=== PATIENT | female | born 1960 | race Caucasian/White ===

== ENCOUNTER 2020-10-13 09:45 | Outpatient (REF) | payer OTHER, SELFPAY ==
--- NOTE | ~2020-10-13 | MM_ITS ---
EXAMINATION: MM SCREENING DIGITAL BREAST TOMOSYNTHESIS, BILATERAL CLINICAL INFORMATION: Screening. Asymptomatic. The lifetime risk of breast cancer based on the Tyrer-Cuzick Model is 4%. COMPARISON: Mammography: 08/17/2019, 08/11/2018, 10/07/2015, 06/23/2015 TECHNIQUE: Digital breast tomosynthesis is performed in both the craniocaudal and mediolateral oblique views along with computer-aided detection (CAD). Synthesized 2D images are generated from the tomosynthesis. FINDINGS: There are scattered areas of fibroglandular density (ACR BI-RADS breast composition Category b). There are no significant masses, abnormal calcifications, or other abnormalities. Parenchymal pattern is similar to prior studies. There is no developing density. Nodularity anterior central and mid medial left breast is stable from prior studies. The axilla are stable. The skin contours are unremarkable. MM/MM tomosynthesis screening BI IMPRESSION: No mammographic evidence of malignancy. ASSESSMENT: BI-RADS 2: Benign RECOMMENDATION: Routine annual mammography screening. This patient's information was entered into a reminder system with a target due date for their next mammogram.
== END 2020-10-13 09:46 | disposition home or self-care (01) ==
LOC: HO.MAMMO 09:45
PROVIDERS: Visit Provider Internal Medicine
DX: Z12.31 Encounter for screening mammogram for malignant neoplasm of breast (principal)
CPT/HCPCS: 77063; 77067

== ENCOUNTER 2021-05-04 12:33 | Outpatient (REF) | payer OTHER, SELFPAY ==
--- NOTE | ~2021-05-04 | XR_ITS ---
EXAMINATION: XR KNEE, LEFT CLINICAL INFORMATION: Pain COMPARISON: Previous x-ray 2010 TECHNIQUE: Four views of the left knee. FINDINGS: Bone alignment is normal. No fracture or dislocation is seen. There is degenerative meniscal calcification. There is joint space narrowing and small osteophytes at the patellofemoral and femoral tibial joints. There is no significant joint effusion. XR/XR knee LT 2V IMPRESSION: Arthritis similar to 2010 exam.
[2021-05-04 12:47] LABS: MANUAL DIFF FLAG NO
[2021-05-04 13:25] LABS: Basophils Absolute Auto 0.1 X10*3/uL (0.0-0.2); Basophils Percent Auto 0.6 % (0-2); Eosinophils Absolute Auto 0.2 X10*3/uL (0.0-0.4); Eosinophils Percent Auto 1.3 % (0-4); Hematocrit 42.8 % (37.0-47.0); Hemoglobin 13.3 g/dl (12.0-16.0); Imm Gran Abs Auto 0.05 X10*3/uL (0.00-0.03); Imm Gran Pct Auto 0.4 % (0.0-0.4); Lymphocytes Absolute Auto 3.7 X10*3/uL (1.2-4.9); Lymphocytes Percent Auto 31.7 % (20-40); Mean Corpuscular HGB Conc 31.1 g/dl (31.0-35.0); Mean Corpuscular Hemoglobin 27.5 pg (27.0-33.0); Mean Corpuscular Volume 88.6 fL (80.0-98.0); Mean Platelet Volume 11.1 fL (9.4-12.3); Monocytes Absolute Auto 0.6 X10*3/uL (0.1-1.2); Platelet Count 323 X10*3/uL (160-400); Red Blood Count 4.83 X10*6/uL (4.20-5.50); Red Cell Distribution Width 13.2 % (11.0-16.0); White Blood Count 11.6 X10*3/uL (4.8-10.8)
[2021-05-04 14:08] LABS: Alanine Aminotransferase 24 U/L (0-31); Albumin Level 4.3 g/dL (3.5-5.0); Alkaline Phosphatase 110 U/L (39-117); Anion Gap 12 (12-20); Aspartate Amino Transferase 17 U/L (5-31); Bilirubin Total 0.2 mg/dL (0.0-1.0); Blood Urea Nitrogen 9 mg/dL (9-16); Calcium 9.8 mg/dL (8.4-10.2); Carbon Dioxide 28 mmol/L (22-29); Chloride 101 mmol/L (96-108); Cholesterol 210 mg/dL; Estimated Glomerular Filt Rate > 60; Glucose Fasting 163 mg/dL (60-99); HDL Cholesterol 37 mg/dL; LDL Cholesterol Calculated 127 mg/dl; Potassium 4.2 mmol/L (3.3-5.1); Sodium 137 mmol/L (135-145); Triglycerides 230 mg/dL
[2021-05-04 14:19] LABS: Thyroid Stimulating Hormone 1.27 uIU/mL (0.32-4.0)
== END 2021-05-04 12:34 | disposition home or self-care (01) ==
LOC: HO.LAB 12:33
PROVIDERS: PCP Internal Medicine; Visit Provider Internal Medicine
DX: Z00.00 Encounter for general adult medical examination without abnormal findings (principal); Z13.0 Encounter for screening for diseases of the blood and blood-forming organs and certain disorders involving the immune mechanism; M25.562 Pain in left knee
CPT/HCPCS: 36415; 73560; 80053; 80061; 84443; 85025

== ENCOUNTER 2021-05-11 09:56 | Outpatient (REF) | payer OTHER, SELFPAY ==
[2021-05-11 11:07] LABS: Estimated Average Glucose 160 mg/dL; Hemoglobin A1c % 7.2 %
[2021-05-11 11:43] LABS: Glucose Fasting 154 mg/dL (60-99)
== END 2021-05-11 09:57 | disposition home or self-care (01) ==
LOC: HO.LAB 09:56
PROVIDERS: PCP Internal Medicine; Visit Provider Internal Medicine
DX: E11.65 Type 2 diabetes mellitus with hyperglycemia (principal)
CPT/HCPCS: 36415; 82947; 83036

== ENCOUNTER 2021-10-14 10:56 | Outpatient (REF) | payer OTHER, SELFPAY ==
--- NOTE | ~2021-10-14 | MM_ITS ---
EXAMINATION: MM SCREENING DIGITAL BREAST TOMOSYNTHESIS, BILATERAL CLINICAL INFORMATION: Screening. Asymptomatic. The lifetime risk of breast cancer based on the Tyrer-Cuzick Model is 6.0%. COMPARISON: Mammography: October 13, 2020 and studies dating back to June 08, 2013 TECHNIQUE: Digital breast tomosynthesis is performed in both the craniocaudal and mediolateral oblique views along with computer-aided detection (CAD). Synthesized 2D images are generated from the tomosynthesis. FINDINGS: There are scattered areas of fibroglandular density (ACR BI-RADS breast composition Category b). There are no new significant masses, abnormal calcifications, or other abnormalities. Bilateral circumscribed densities are again noted. MM/MM tomosynthesis screening BI IMPRESSION: No significant changes ASSESSMENT: BI-RADS 2: Benign RECOMMENDATION: Routine annual mammography screening. This patient's information was entered into a reminder system with a target due date for their next mammogram.
== END 2021-10-14 10:57 | disposition home or self-care (01) ==
LOC: HO.MAMMO 10:56
PROVIDERS: Visit Provider Internal Medicine
DX: Z12.31 Encounter for screening mammogram for malignant neoplasm of breast (principal)
CPT/HCPCS: 77063; 77067

== ENCOUNTER 2021-10-28 10:49 | Outpatient (REF) | payer OTHER, SELFPAY ==
[2021-10-28 12:09] LABS: Estimated Average Glucose 252 mg/dL; Hemoglobin A1c % 10.4 %
[2021-10-28 12:38] LABS: Cholesterol 217 mg/dL; Glucose Fasting 440 mg/dL (60-99); HDL Cholesterol 33 mg/dL; LDL Cholesterol Calculated 115 mg/dl; Triglycerides 348 mg/dL
[2021-10-28 12:55] LABS: Thyroid Stimulating Hormone 1.57 uIU/mL (0.32-4.0)
== END 2021-10-28 10:50 | disposition home or self-care (01) ==
LOC: HO.LAB 10:49
PROVIDERS: PCP Internal Medicine; Visit Provider Internal Medicine
DX: Z13.6 Encounter for screening for cardiovascular disorders (principal); E11.65 Type 2 diabetes mellitus with hyperglycemia
CPT/HCPCS: 36415; 80061; 82947; 83036; 84443

== ENCOUNTER 2022-06-28 12:16 | Outpatient (REF) | payer OTHER, SELFPAY ==
[2022-06-28 12:30] LABS: MANUAL DIFF FLAG NO
[2022-06-28 14:10] LABS: Basophils Absolute Auto 0.1 X10*3/uL (0.0-0.2); Basophils Percent Auto 0.7 % (0-2); Eosinophils Absolute Auto 0.2 X10*3/uL (0.0-0.4); Eosinophils Percent Auto 1.4 % (0-4); Imm Gran Abs Auto 0.05 X10*3/uL (0.00-0.03); Imm Gran Pct Auto 0.3 % (0.0-0.4); Lymphocytes Absolute Auto 4.4 X10*3/uL (1.2-4.9); Lymphocytes Percent Auto 28.9 % (20-40); Mean Corpuscular HGB Conc 32.6 g/dl (31.0-35.0); Mean Corpuscular Hemoglobin 28.5 pg (27.0-33.0); Mean Corpuscular Volume 87.6 fL (80.0-98.0); Mean Platelet Volume 11.9 fL (9.4-12.3); Monocytes Absolute Auto 0.8 X10*3/uL (0.1-1.2); Monocytes Percent Auto 5.4 % (2-11); Neutrophils Absolute Auto 9.6 x10*3/uL (2.0-8.3); Neutrophils Percent Auto 63.3 % (45-73); Platelet Count 299 X10*3/uL (160-400); Red Blood Count 4.91 X10*6/uL (4.20-5.50); Red Cell Distribution Width 13.4 % (11.0-16.0); White Blood Count 15.2 X10*3/uL (4.8-10.8)
[2022-06-28 14:59] LABS: Alanine Aminotransferase 36 U/L (0-31); Albumin Level 4.3 g/dL (3.5-5.0); Alkaline Phosphatase 112 U/L (39-117); Anion Gap 14 (12-20); Aspartate Amino Transferase 19 U/L (5-31); Bilirubin Total 0.4 mg/dL (0.0-1.0); Blood Urea Nitrogen 9 mg/dL (9-16); Calcium 9.8 mg/dL (8.4-10.2); Carbon Dioxide 27 mmol/L (22-29); Chloride 101 mmol/L (96-108); Cholesterol 209 mg/dL; Estimated Glomerular Filt Rate > 60; Glucose Fasting 255 mg/dL (60-99); HDL Cholesterol 33 mg/dL; LDL Cholesterol Calculated 104 mg/dl; Potassium 4.5 mmol/L (3.3-5.1); Sodium 137 mmol/L (135-145); Total Protein 6.7 g/dL (6.5-8.0); Triglycerides 364 mg/dL
[2022-06-28 15:00] LABS: Estimated Average Glucose 220 mg/dL; Hemoglobin A1c % 9.3 %
== END 2022-06-28 12:17 | disposition home or self-care (01) ==
LOC: HO.LAB 12:16
PROVIDERS: Visit Provider Internal Medicine
DX: D64.9 Anemia, unspecified (principal); E78.5 Hyperlipidemia, unspecified; R73.9 Hyperglycemia, unspecified; N28.9 Disorder of kidney and ureter, unspecified
CPT/HCPCS: 36415; 80053; 80061; 83036; 85025

== ENCOUNTER 2022-10-01 11:58 | Outpatient (REF) | payer OTHER, SELFPAY ==
[2022-10-01 14:57] LABS: Glucose Fasting 231 mg/dL (60-99)
[2022-10-02 03:28] LABS: Estimated Average Glucose 200 mg/dL; Hemoglobin A1c % 8.6 %
== END 2022-10-01 11:59 | disposition home or self-care (01) ==
LOC: HO.LAB 11:58
PROVIDERS: PCP Internal Medicine; Visit Provider Internal Medicine
DX: R73.9 Hyperglycemia, unspecified (principal)
CPT/HCPCS: 36415; 82947; 83036

== ENCOUNTER 2022-11-09 10:04 | Outpatient (AMB) | payer OTHER, SELFPAY ==
[2022-11-09 10:09] VITALS: BP 138/72; PULSE 90; O2SAT 97; BMI 33.5
--- NOTE | 2022-11-09 10:09 | MHC.PC.OV ---
Vital Signs 11/09/22 10:09 Height 5 ft 3 in Weight 189 lb BMI 33.5 BP 138/72 Blood Pressure Location Lt brachial Position Sitting Pulse 90 Pulse Source Pulse Oximeter Pulse Oximetry (%) 97 Oxygen Delivery Method Room Air Intake Visit Reasons: 3 month f/u Metaphysicist: Not Required per policy Accompanied by: Self / Same As Patient Allergies amoxicillin Allergy (Unknown, Verified 11/09/22 10:09) Unknown barium sulfate Allergy (Unknown, Verified 11/09/22 10:09) unknown cortisone [Cortisone] Allergy (Unknown, Verified 11/09/22 10:09) TREMORS ibuprofen [From Motrin] Allergy (Unknown, Verified 11/09/22 10:09) Unknown Penicillins [PENICILLINS] Allergy (Unknown, Verified 11/09/22 10:09) HIVES varenicline [From Chantix] Allergy (Unknown, Verified 11/09/22 10:09) Unknown Medication List - Last Reconciled 11/09/22 by Shiv Dodson MD albuterol sulfate 2.5 mg (3 mL) inhalation Q6-8H amlodipine 10 mg PO DAILY blood sugar diagnostic (FreeStyle Lite Strips) test blood sugar three times a day blood-glucose meter (FreeStyle Flash System kit) As directed blood-glucose meter (FreeStyle Lite Meter kit) As directed [id number]-tfdjuab-calvduwx 50-325-40 mg 1 cap PO Q6H PRN fluticasone propionate 110 mcg/actuation (Flovent HFA) 1 puff PO BID hydrochlorothiazide 12.5 mg PO DAILY lorazepam 1 mg PO BID PRN metformin 1,000 mg PO BID ProAir HFA 90 mcg/actuation (albuterol sulfate) 2 puffs inhalation Q4H PRN NS tramadol 50 mg PO BID PRN walker (Ultra-Light Rollator misc) to use daily Tobacco use date assessed: 04/30/22 Dental Screening Dental Screen Date: 11/09/22 Did you have a dental visit in the last 12 months?: Yes Did you have a dental problem in the last 6 months where you did not have access to dental care?: No Was dental information given to patient?: Patient has dentist HPI 3 month f/u HPI Details COPD HTN and DM; doing well; compliant [facility] Medical History Obesity COPD (chronic obstructive pulmonary disease) Hypertension Surgical History History of thyroidectomy History of cholecystectomy Family History Father Medical history unknown Mother Emphysema of lung Social History Housing: Apartment Alcohol intake: never Patient Tobacco Use Status: Current everyday Tobacco user Tobacco use type: Cigarette Cigarettes Per Day: 4 e-Cigarette/Vaping Use: Never Used Second Hand Smoke Exposure: Yes service: No Current occupational status: disabled Cognitive needs: No (Walker) Hearing needs: No Vision needs: Yes (Glasses) Questionnaire PHQ-9 Over the last 2 weeks, how often have you been bothered by any of the following problems? 2. Feeling down, depressed, or hopeless: not at all 3. Trouble falling or staying asleep, or sleeping too much: not at all 4. Feeling tired or having little energy: not at all 5. Poor appetite or overeating: not at all 6. Feeling bad about yourself - or that you are a failure or have let yourself or your family down: not at all 7. Trouble concentrating on things, such as reading the newspaper or watching television: not at all 8. Moving or speaking so slowly that other people could have noticed. Or the opposite - being so fidgety or restless that you have been moving around a lot more than usual: not at all 9. Thoughts that you would be better off or of hurting yourself in some way: not at all Depression Screening Interpretation: Negative 18797 - PHQ-9 Billing: Yes Source: Developed by Drs. Riley Acosta, Sandie Quiroz, Jay Victor and colleagues, with an educational rudy from [employer]. Thrive Questionnaire Date Thrive assessed: 11/09/22 I am a: Patient What is your living situation today?: I have a steady place to live Within the past 12 months, did the food you bought not last and you didn't have the money to get more?: Never true Within the past 12 months, did you worry whether your food would run out before you got money to buy more?: Never true Do you have trouble paying for medicines?: No Do you have trouble getting transportation to medical appointments?: No Do you have trouble paying your heating and electricity bill?: No Do you have trouble taking care of your child, family member or friend?: No Do you have trouble with day-to-day activities such as bathing, preparing meals, shopping, managing finances, etc.?: No Are you currently unemployed and looking for a job?: No Are you interested in more education?: No Please select the resources that you would like help with: None AUDIT C Alcohol Use Questionnaire (AUDIT-C) 1. How often do you have a drink containing alcohol?: Never Total Score: 0 Score Reviewed/Action Taken: Yes RANDA-7 AMB Questionnaire RANDA-7 Date RANDA - 7 assessed: 04/30/22 Source: Developed by Drs. Riley Acosta, Sandie Quiroz, Jay Victor and colleagues, with an educational rudy from [employer]. Review of Systems Const Denies chills, Denies headache(s) and Denies weight loss ENT Denies headache(s) Card Denies chest pain, Denies syncope, Denies irregular heart rhythm and Denies dyspnea Resp Denies chest congestion, Denies cough and Denies dyspnea GI Denies abdominal pain, Denies change in stool character, Denies nausea and Denies vomiting Musc Denies deformity and Denies joint swelling Neuro Denies syncope and Denies headache(s) Physical exam (Primary Care) Vital Signs: Last Vital Signs Pulse 90 11/09/22 10:09 BP 138/72 11/09/22 10:09 Pulse Ox 97 11/09/22 10:09 Oxygen Delivery Method Room Air 11/09/22 10:09 BMI result Body Mass Index 33.5 Tobacco/Smoking Status: Tobacco use Status Tobacco use date assessed 04/30/22 11/09/22 10:14 Patient Tobacco Use Status Current everyday Tobacco 11/09/22 10:14 Tobacco use type Cigarette 11/09/22 10:14 e-Cigarette/Vaping Use Never Used 11/09/22 10:14 Depression Screening Interpretation: Negative Thrive Assessment: Date of Thrive Assessment Date Thrive assessed 11/09/22 11/09/22 10:14 Const General: cooperative, comfortable, no acute distress and alert Neck Neck: Yes no lymphadenopathy Thyroid: Thyroid normal Resp Effort & Inspection: normal respiratory effort Auscultation: clear to auscultation bilaterally Percussion: percussion normal Cardio Jugular venous distension: no JVD Palpation: normal PMI Rate: regular rate Rhythm: regular rhythm Heart sounds: S1 normal heart sound present and S2 normal heart sound present GI Inspection: Yes normal to inspection Palpation (GI): No hepatosplenomegaly present Skin General skin exam: no rashes or lesions noted Extrem General: Yes no clubbing, cyanosis or edema Assessment and Plan Assessment & Plan (1) Diabetes mellitus with coincident hypertension: Code(s): E11.9 - Type 2 diabetes mellitus without complications; I10 - Essential (primary) hypertension Plan: stable; same rx; do labs (2) COPD (chronic obstructive pulmonary disease): Code(s): J44.9 - Chronic obstructive pulmonary disease, unspecified Plan: stable; same rx (3) Hypertension: Code(s): I10 - Essential (primary) hypertension Plan: stable same rx Orders: Orders Lipid Panel Today E78.5 - Hyperlipidemia, unspecified Comprehensive Pierson. Panel Fast Today N28.9 - Disorder of kidney and ureter, unspecified Thyroid Stimulating Hormone Today E03.9 - Hypothyroidism, unspecified Complete Blood Count Auto Diff Today D64.9 - Anemia, unspecified Microalbumin, Random (w Creat) Today E11.69 - Type 2 diabetes mellitus with other specified complication, E66.01 - Morbid (severe) obesity due to excess calories Hemoglobin A1c Today R73.9 - Hyperglycemia, unspecified Coding Level of Care Code Est Pt Level 4 (60168) Diagnoses Diabetes mellitus with coincident hypertension E11.9; I10 COPD (chronic obstructive pulmonary disease) J44.9 Hypertension I10
== END 2022-11-09 10:24 | disposition home or self-care (01) ==
PROVIDERS: PCP Internal Medicine; Visit Provider Internal Medicine
DX: E11.9 Type 2 diabetes mellitus without complications (principal); I10 Essential (primary) hypertension; J44.9 Chronic obstructive pulmonary disease, unspecified
CPT/HCPCS: 99214

== ENCOUNTER 2023-02-09 10:01 | Outpatient (AMB) | payer OTHER, SELFPAY ==
[2023-02-09 10:03] VITALS: BP 140/70; PULSE 90; O2SAT 95; BMI 34.2
--- NOTE | 2023-02-09 10:03 | A.OFFPC_ITS ---
Vital Signs 02/09/23 10:03 Height 5 ft 3 in Weight 193 lb BMI 34.2 BP 140/70 H Blood Pressure Location Lt brachial Position Sitting Pulse 90 Pulse Source Pulse Oximeter Pulse Oximetry (%) 95 Oxygen Delivery Method Room Air Intake Visit Reasons: 3 month f/u Flap Lining Binder: Not Required per policy Accompanied by: Self / Same As Patient Allergies amoxicillin Allergy (Unknown, Verified 02/09/23 10:04) Unknown barium sulfate Allergy (Unknown, Verified 02/09/23 10:04) unknown cortisone [Cortisone] Allergy (Unknown, Verified 02/09/23 10:04) TREMORS ibuprofen [From Motrin] Allergy (Unknown, Verified 02/09/23 10:04) Unknown Penicillins [PENICILLINS] Allergy (Unknown, Verified 02/09/23 10:04) HIVES varenicline [From Chantix] Allergy (Unknown, Verified 02/09/23 10:04) Unknown Medication List - Last Reconciled 02/09/23 by Shiv Dodson MD albuterol sulfate 2.5 mg (3 mL) inhalation Q6-8H amlodipine 10 mg PO DAILY blood sugar diagnostic (FreeStyle Lite Strips) test blood sugar three times a day blood-glucose meter (FreeStyle Flash System kit) As directed blood-glucose meter (FreeStyle Lite Meter kit) As directed mbrvsvufaf-akmippb-znnkdwud 50-325-40 mg 1 cap PO Q6H PRN fluticasone propionate 110 mcg/actuation (Flovent HFA) 1 puff PO BID hydrochlorothiazide 12.5 mg PO DAILY lorazepam 1 mg PO BID PRN metformin 1,000 mg PO BID ProAir HFA 90 mcg/actuation (albuterol sulfate) 2 puffs inhalation Q4H PRN NS tramadol 50 mg PO BID PRN walker (Ultra-Light Rollator misc) to use daily Tobacco use date assessed: 04/30/22 Dental Screening Dental Screen Date: 02/09/23 Did you have a dental visit in the last 12 months?: Yes Did you have a dental problem in the last 6 months where you did not have access to dental care?: No Was dental information given to patient?: Patient has dentist HPI 3 month f/u HPI Details DM HTN and asthma; needs to follow diet better [facility] Medical History Obesity COPD (chronic obstructive pulmonary disease) Hypertension Surgical History History of thyroidectomy History of cholecystectomy Family History Father Medical history unknown Mother Emphysema of lung Social History Housing: Apartment Alcohol intake: never Patient Tobacco Use Status: Current everyday Tobacco user Tobacco use type: Cigarette Cigarettes Per Day: 4 e-Cigarette/Vaping Use: Never Used Second Hand Smoke Exposure: Yes service: No Current occupational status: disabled Cognitive needs: No (Walker) Hearing needs: No Vision needs: Yes (Glasses) Questionnaire Thrive Questionnaire Date Thrive assessed: 11/09/22 RANDA-7 AMB Questionnaire RANDA-7 Date RANDA - 7 assessed: 04/30/22 Source: Developed by Drs. Riley Acosta, Sandie Quiroz, Jay Victor and colleagues, with an educational rudy from [employer]. Review of Systems Const Denies chills, Denies headache(s) and Denies weight loss ENT Denies headache(s) Card Denies chest pain, Denies syncope, Denies irregular heart rhythm and Denies dyspnea Resp Denies chest congestion, Denies cough and Denies dyspnea GI Denies abdominal pain, Denies change in stool character, Denies nausea and Denies vomiting Musc Denies deformity and Denies joint swelling Neuro Denies syncope and Denies headache(s) Physical exam (Primary Care) Vital Signs: Last Vital Signs Pulse 90 02/09/23 10:03 BP 140/70 H 02/09/23 10:03 Pulse Ox 95 02/09/23 10:03 Oxygen Delivery Method Room Air 02/09/23 10:03 BMI result Body Mass Index 34.2 Tobacco/Smoking Status: Tobacco use Status Tobacco use date assessed 04/30/22 02/09/23 10:05 Patient Tobacco Use Status Current everyday Tobacco 02/09/23 10:05 Tobacco use type Cigarette 02/09/23 10:05 e-Cigarette/Vaping Use Never Used 02/09/23 10:05 Thrive Assessment: Date of Thrive Assessment Date Thrive assessed 11/09/22 02/09/23 10:05 Const General: cooperative, comfortable, no acute distress and alert Neck Neck: Yes no lymphadenopathy Thyroid: Thyroid normal Resp Effort & Inspection: normal respiratory effort Auscultation: clear to auscultation bilaterally Percussion: percussion normal Cardio Jugular venous distension: no JVD Palpation: normal PMI Rate: regular rate Rhythm: regular rhythm Heart sounds: S1 normal heart sound present and S2 normal heart sound present GI Inspection: Yes normal to inspection Palpation (GI): No hepatosplenomegaly present Skin General skin exam: no rashes or lesions noted Extrem General: Yes no clubbing, cyanosis or edema Results AMB Hemoglobin A1c AMB Hemoglobin A1c 9.3 % Last Edit by ELIZABETH Branch on 02/09/23 10:20 Results Reviewed Results Reviewed: Laboratory Last Values Hgb A1c (Clinic) 9.3 % (4.0-6.0) H 02/09/23 10:05 Assessment and Plan Assessment & Plan (1) Diabetes mellitus with coincident hypertension: Code(s): E11.9 - Type 2 diabetes mellitus without complications; I10 - Essential (primary) hypertension Plan: check labs (2) COPD (chronic obstructive pulmonary disease): Code(s): J44.9 - Chronic obstructive pulmonary disease, unspecified Plan: stable (3) Hypertension: Code(s): I10 - Essential (primary) hypertension Plan: same rx Orders: Orders AMB Hemoglobin A1c Today E11.9 - Type 2 diabetes mellitus without complications, I10 - Essential (primary) hypertension Coding Level of Care Code Est Pt Level 4 (75935) Diagnoses Diabetes mellitus with coincident hypertension E11.9; I10 COPD (chronic obstructive pulmonary disease) J44.9 Hypertension I10
== END 2023-02-09 10:22 | disposition home or self-care (01) ==
PROVIDERS: PCP Internal Medicine; Visit Provider Internal Medicine
DX: E11.9 Type 2 diabetes mellitus without complications (principal); I10 Essential (primary) hypertension; J44.9 Chronic obstructive pulmonary disease, unspecified; Z68.34 Body mass index [BMI] 34.0-34.9, adult
CPT/HCPCS: 83036; 99214

== ENCOUNTER 2023-05-24 09:47 | Outpatient (REF) | payer OTHER, SELFPAY ==
[2023-05-24 10:08] LABS: MANUAL DIFF FLAG NO
[2023-05-24 10:52] LABS: Basophils Absolute Auto 0.1 X10*3/uL (0.0-0.2); Eosinophils Absolute Auto 0.2 X10*3/uL (0.0-0.4); Eosinophils Percent Auto 1.3 % (0-4); Hematocrit 42.3 % (37.0-47.0); Hemoglobin 13.6 g/dl (12.0-16.0); Imm Gran Abs Auto 0.05 X10*3/uL (0.00-0.03); Imm Gran Pct Auto 0.4 % (0.0-0.4); Lymphocytes Percent Auto 31.9 % (20-40); Mean Corpuscular HGB Conc 32.2 g/dl (31.0-35.0); Mean Corpuscular Hemoglobin 28.6 pg (27.0-33.0); Mean Corpuscular Volume 88.9 fL (80.0-98.0); Monocytes Absolute Auto 0.7 X10*3/uL (0.1-1.2); Monocytes Percent Auto 5.8 % (2-11); Neutrophils Absolute Auto 7.4 x10*3/uL (2.0-8.3); Neutrophils Percent Auto 59.6 % (45-73); Platelet Count 355 X10*3/uL (160-400); Red Blood Count 4.76 X10*6/uL (4.20-5.50); Red Cell Distribution Width 13.2 % (11.0-16.0); White Blood Count 12.5 X10*3/uL (4.8-10.8)
[2023-05-24 11:24] LABS: Estimated Average Glucose 160 mg/dL; Hemoglobin A1c % 7.2 % (<6.0)
[2023-05-24 11:31] LABS: Creatinine Urine 20.84 mg/dL; Microalbum/Creatinine Ratio Ur 196.7 ug/mg cr (<30)
[2023-05-24 11:35] LABS: Alanine Aminotransferase 28 U/L (0-31); Albumin Level 4.2 g/dL (3.5-5.0); Alkaline Phosphatase 100 U/L (39-117); Anion Gap 12 (12-20); Aspartate Amino Transferase 18 U/L (5-31); Bilirubin Total 0.2 mg/dL (0.0-1.0); Blood Urea Nitrogen 8 mg/dL (9-16); Calcium 9.5 mg/dL (8.4-10.2); Carbon Dioxide 26 mmol/L (22-29); Chloride 103 mmol/L (96-108); Cholesterol 203 mg/dL (<200); Estimated Glomerular Filt Rate > 60; Glucose Fasting 148 mg/dL (60-99); HDL Cholesterol 33 mg/dL (>40); LDL Cholesterol Calculated 106 mg/dL (<100); Sodium 137 mmol/L (135-145); Total Protein 7.2 g/dL (6.5-8.0); Triglycerides 320 mg/dL (<150)
[2023-05-24 11:52] LABS: Thyroid Stimulating Hormone 1.23 uIU/mL (0.32-4.0)
== END 2023-05-24 09:48 | disposition home or self-care (01) ==
LOC: HO.LAB 09:47
PROVIDERS: PCP Internal Medicine; Visit Provider Internal Medicine
DX: E11.69 Type 2 diabetes mellitus with other specified complication (principal); E11.65 Type 2 diabetes mellitus with hyperglycemia; E78.5 Hyperlipidemia, unspecified; N28.9 Disorder of kidney and ureter, unspecified; E03.9 Hypothyroidism, unspecified; D64.9 Anemia, unspecified; E66.01 Morbid (severe) obesity due to excess calories; I10 Essential (primary) hypertension
CPT/HCPCS: 36415; 80053; 80061; 82043; 82570; 83036; 84443; 85025

== ENCOUNTER 2023-05-24 11:13 | Outpatient (AMB) | payer OTHER, SELFPAY ==
[2023-05-24 11:17] VITALS: BP 112/64; PULSE 85; O2SAT 96; BMI 32.8
--- NOTE | 2023-05-24 11:17 | A.OFFPC_ITS ---
Vital Signs 05/24/23 11:17 Height 5 ft 3 in Weight 185 lb BMI 32.8 BP 112/64 Blood Pressure Location Lt brachial Position Sitting Pulse 85 Pulse Source Pulse Oximeter Pulse Oximetry (%) 96 Oxygen Delivery Method Room Air Intake Visit Reasons: 3month follow up [employer] Required: No Permastone Applicator: Not Required per policy Accompanied by: Self / Same As Patient Allergies amoxicillin Allergy (Unknown, Verified 05/24/23 11:17) Unknown barium sulfate Allergy (Unknown, Verified 05/24/23 11:17) unknown cortisone [Cortisone] Allergy (Unknown, Verified 05/24/23 11:17) TREMORS ibuprofen [From Motrin] Allergy (Unknown, Verified 05/24/23 11:17) Unknown Penicillins [PENICILLINS] Allergy (Unknown, Verified 05/24/23 11:17) HIVES varenicline [From Chantix] Allergy (Unknown, Verified 05/24/23 11:17) Unknown Medication List - Last Reconciled 05/24/23 by Shiv Dodson MD albuterol sulfate 2.5 mg (3 mL) inhalation Q6-8H amlodipine 10 mg PO DAILY blood sugar diagnostic (FreeStyle Lite Strips) test blood sugar three times a day blood-glucose meter (FreeStyle Flash System kit) As directed blood-glucose meter (FreeStyle Lite Meter kit) As directed rvnissuylz-leabqgh-oxlywuob 50-325-40 mg 1 cap PO Q6H PRN fluticasone propionate 110 mcg/actuation (Flovent HFA) 1 puff PO BID hydrochlorothiazide 12.5 mg PO DAILY lorazepam 1 mg PO BID PRN metformin 1,000 mg PO BID ProAir HFA 90 mcg/actuation (albuterol sulfate) 2 puffs inhalation Q4H PRN NS tramadol 50 mg PO BID PRN walker (Ultra-Light Rollator misc) to use daily Tobacco use date assessed: 05/24/23 Dental Screening Dental Screen Date: 05/24/23 Did you have a dental visit in the last 12 months?: Yes Did you have a dental problem in the last 6 months where you did not have access to dental care?: No Was dental information given to patient?: Patient has dentist HPI 3month follow up HPI Details asthma HTN and DM; doing well and compliant [facility] Medical History Obesity COPD (chronic obstructive pulmonary disease) Hypertension Surgical History History of thyroidectomy History of cholecystectomy Family History Father Medical history unknown Mother Emphysema of lung Social History Housing: Apartment Alcohol intake: never Patient Tobacco Use Status: Current everyday Tobacco user Tobacco use type: Cigarette Cigarettes Per Day: 4 e-Cigarette/Vaping Use: Never Used Second Hand Smoke Exposure: Yes service: No Current occupational status: disabled Cognitive needs: No (Walker) Hearing needs: No Vision needs: Yes (Glasses) Questionnaire PHQ-9 Over the last 2 weeks, how often have you been bothered by any of the following problems? 1. Little interest or pleasure in doing things: not at all 2. Feeling down, depressed, or hopeless: not at all 3. Trouble falling or staying asleep, or sleeping too much: not at all 4. Feeling tired or having little energy: not at all 5. Poor appetite or overeating: not at all 6. Feeling bad about yourself - or that you are a failure or have let yourself or your family down: not at all 7. Trouble concentrating on things, such as reading the newspaper or watching television: not at all 8. Moving or speaking so slowly that other people could have noticed. Or the opposite - being so fidgety or restless that you have been moving around a lot more than usual: not at all 9. Thoughts that you would be better off or of hurting yourself in some way: not at all Total score: 0 Depression Screening Interpretation: Negative Depression Screening Done: Yes [id number] - PHQ-9 Billing: Yes Source: Developed by Drs. Riley Acosta, Sandie Quiroz, Jay Victor and colleagues, with an educational rudy from [employer]. Thrive Questionnaire Date Thrive assessed: 05/24/23 I am a: Patient What is your living situation today?: I have a steady place to live Within the past 12 months, did the food you bought not last and you didn't have the money to get more?: Never true Within the past 12 months, did you worry whether your food would run out before you got money to buy more?: Never true Do you have trouble paying for medicines?: No Do you have trouble getting transportation to medical appointments?: No Do you have trouble paying your heating and electricity bill?: No Do you have trouble taking care of your child, family member or friend?: No Do you have trouble with day-to-day activities such as bathing, preparing meals, shopping, managing finances, etc.?: No Are you currently unemployed and looking for a job?: No Are you interested in more education?: No Please select the resources that you would like help with: None THRIVE Score: 0 AUDIT C Alcohol Use Questionnaire (AUDIT-C) 1. How often do you have a drink containing alcohol?: Never Total Score: 0 Score Reviewed/Action Taken: Yes RANDA-7 AMB Questionnaire RANDA-7 Date RANDA - 7 assessed: 05/24/23 Feeling nervous, anxious, or on edge: 0 = Not at all Not being able to stop or control worryin = Not at all Worrying too much about different things: 0 = Not at all Trouble relaxin = Not at all Being so restless that it is hard to sit still: 0 = Not at all Becoming easily annoyed or irritable: 0 = Not at all Feeling afraid as if something awful might happen: 0 = Not at all Total RANDA-7 score (0-4 normal; 5-9 mild; 10-14 moderate; 15-21 severe): 0 Source: Developed by Drs. Riley Acosta, Sandie Quiroz, Jay Victor and colleagues, with an educational rudy from [employer]. Review of Systems Const Denies chills, Denies headache(s) and Denies weight loss ENT Denies headache(s) Card Denies chest pain, Denies syncope, Denies irregular heart rhythm and Denies dyspnea Resp Denies chest congestion, Denies cough and Denies dyspnea GI Denies abdominal pain, Denies change in stool character, Denies nausea and Denies vomiting Musc Denies deformity and Denies joint swelling Neuro Denies syncope and Denies headache(s) Physical exam (Primary Care) Vital Signs: Last Vital Signs Pulse 85 05/24/23 11:17 BP 112/64 05/24/23 11:17 Pulse Ox 96 05/24/23 11:17 Oxygen Delivery Method Room Air 05/24/23 11:17 BMI result Body Mass Index 32.8 Tobacco/Smoking Status: Tobacco use Status Tobacco use date assessed 05/24/23 05/24/23 11:18 Patient Tobacco Use Status Current everyday Tobacco 05/24/23 11:18 Tobacco use type Cigarette 05/24/23 11:18 e-Cigarette/Vaping Use Never Used 05/24/23 11:18 PHQ-9: PHQ-9 Score PHQ-9: Total score 0 05/24/23 11:27 Depression Screening Interpretation: Negative Thrive Assessment: Date of Thrive Assessment Date Thrive assessed 05/24/23 05/24/23 11:18 Const General: cooperative, comfortable, no acute distress and alert Neck Neck: Yes no lymphadenopathy Thyroid: Thyroid normal Resp Effort & Inspection: normal respiratory effort Auscultation: clear to auscultation bilaterally Percussion: percussion normal Cardio Jugular venous distension: no JVD Palpation: normal PMI Rate: regular rate Rhythm: regular rhythm Heart sounds: S1 normal heart sound present and S2 normal heart sound present GI Inspection: Yes normal to inspection Palpation (GI): No hepatosplenomegaly present Skin General skin exam: no rashes or lesions noted Extrem General: Yes no clubbing, cyanosis or edema Assessment and Plan Assessment & Plan (1) Diabetes mellitus with coincident hypertension: Code(s): E11.9 - Type 2 diabetes mellitus without complications; I10 - Essential (primary) hypertension Plan: stable; same rx (2) COPD (chronic obstructive pulmonary disease): Code(s): J44.9 - Chronic obstructive pulmonary disease, unspecified Plan: stable; same rx (3) Hypertension: Code(s): I10 - Essential (primary) hypertension Plan: stable; same rx Medications: Refilled albuterol sulfate 2.5 mg (3 mL) inhalation Q6-8H 90 mL 8RF Coding Level of Care Code Est Pt Level 4 (35697) Diagnoses Diabetes mellitus with coincident hypertension E11.9; I10 COPD (chronic obstructive pulmonary disease) J44.9 Hypertension I10
== END 2023-05-24 11:38 | disposition home or self-care (01) ==
PROVIDERS: PCP Internal Medicine; Visit Provider Internal Medicine
DX: E11.9 Type 2 diabetes mellitus without complications (principal); J44.9 Chronic obstructive pulmonary disease, unspecified; I10 Essential (primary) hypertension
CPT/HCPCS: 99214

== ENCOUNTER 2023-08-29 10:14 | Outpatient (AMB) | payer OTHER, SELFPAY ==
--- NOTE | 2023-08-29 10:19 | MHC.PC.OV ---
Vital Signs 08/29/23 10:20 Height 5 ft 3 in Weight 181 lb BMI 32.1 BP 126/64 Blood Pressure Location Lt brachial Position Sitting Pulse 90 Pulse Source Pulse Oximeter Pulse Oximetry (%) 94 Oxygen Delivery Method Room Air Intake Visit Reasons: 3mof\u Allergies amoxicillin Allergy (Unknown, Verified 05/24/23 11:17) Unknown barium sulfate Allergy (Unknown, Verified 05/24/23 11:17) unknown cortisone [Cortisone] Allergy (Unknown, Verified 05/24/23 11:17) TREMORS ibuprofen [From Motrin] Allergy (Unknown, Verified 05/24/23 11:17) Unknown Penicillins [PENICILLINS] Allergy (Unknown, Verified 05/24/23 11:17) HIVES varenicline [From Chantix] Allergy (Unknown, Verified 05/24/23 11:17) Unknown Tobacco use date assessed: 05/24/23 Dental Screening Dental Screen Date: 05/24/23 HPI 3mof\u HPI Details copd on rx; doing well and compliant [facility] Medical History Obesity COPD (chronic obstructive pulmonary disease) Hypertension Surgical History History of thyroidectomy History of cholecystectomy Family History Father Medical history unknown Mother Emphysema of lung Social History Housing: Apartment Alcohol intake: never Patient Tobacco Use Status: Current everyday Tobacco user Tobacco use type: Cigarette Cigarettes Per Day: 4 e-Cigarette/Vaping Use: Never Used Second Hand Smoke Exposure: Yes service: No Current occupational status: disabled Cognitive needs: No (Walker) Hearing needs: No Vision needs: Yes (Glasses) Questionnaire Thrive Questionnaire Date Thrive assessed: 05/24/23 RANDA-7 AMB Questionnaire RANDA-7 Date RANDA - 7 assessed: 05/24/23 Source: Developed by Drs. Riley Acosta, Sandie Quiroz, Jay Victor and colleagues, with an educational rudy from [employer]. Review of Systems Const Denies chills, Denies headache(s) and Denies weight loss ENT Denies headache(s) Card Denies chest pain, Denies syncope, Denies irregular heart rhythm and Denies dyspnea Resp Denies chest congestion, Denies cough and Denies dyspnea GI Denies abdominal pain, Denies change in stool character, Denies nausea and Denies vomiting Musc Denies deformity and Denies joint swelling Neuro Denies syncope and Denies headache(s) Physical exam (Primary Care) Vital Signs: Last Vital Signs Pulse 90 08/29/23 10:20 BP 126/64 08/29/23 10:20 Pulse Ox 94 08/29/23 10:20 Oxygen Delivery Method Room Air 08/29/23 10:20 BMI result Body Mass Index 32.1 Tobacco/Smoking Status: Tobacco use Status Tobacco use date assessed 05/24/23 08/29/23 10:21 Patient Tobacco Use Status Current everyday Tobacco 08/29/23 10:21 Tobacco use type Cigarette 08/29/23 10:21 e-Cigarette/Vaping Use Never Used 08/29/23 10:21 Thrive Assessment: Date of Thrive Assessment Date Thrive assessed 05/24/23 08/29/23 10:21 Const General: cooperative, comfortable, no acute distress and alert Neck Neck: Yes no lymphadenopathy Thyroid: Thyroid normal Resp Effort & Inspection: normal respiratory effort Auscultation: clear to auscultation bilaterally Percussion: percussion normal Cardio Jugular venous distension: no JVD Palpation: normal PMI Rate: regular rate Rhythm: regular rhythm Heart sounds: S1 normal heart sound present and S2 normal heart sound present GI Inspection: Yes normal to inspection Palpation (GI): No hepatosplenomegaly present Skin General skin exam: no rashes or lesions noted Extrem General: Yes no clubbing, cyanosis or edema Results AMB Hemoglobin A1c AMB Hemoglobin A1c 7.4 % Last Edit by ELIZABETH Branch on 08/29/23 10:35 Results Reviewed Results Reviewed: Laboratory Last Values Hgb A1c (Clinic) 7.4 % (4.0-6.0) H 08/29/23 10:21 Assessment and Plan Assessment & Plan (1) COPD (chronic obstructive pulmonary disease): Code(s): J44.9 - Chronic obstructive pulmonary disease, unspecified Plan: stable; same rx Orders: Orders AMB Hemoglobin A1c Today E11.9 - Type 2 diabetes mellitus without complications, I10 - Essential (primary) hypertension Complete Blood Count Auto Diff Today Z13.0 - Encounter for screening for diseases of the blood and blood-forming organs and certain disorders involving the immune mechanism Hemoglobin A1c Today R73.9 - Hyperglycemia, unspecified Lipid Panel Today Z13.220 - Encounter for screening for lipoid disorders Comprehensive [place]. Panel Fast Today Z13.9 - Encounter for screening, unspecified Coding Level of Care Code Est Pt Level 3 (08763) Diagnoses COPD (chronic obstructive pulmonary disease) J44.9
[2023-08-29 10:20] VITALS: BP 126/64; PULSE 90; O2SAT 94; BMI 32.1
== END 2023-08-29 10:39 | disposition home or self-care (01) ==
PROVIDERS: PCP Internal Medicine; Visit Provider Internal Medicine
DX: E11.9 Type 2 diabetes mellitus without complications (principal); I10 Essential (primary) hypertension; J44.9 Chronic obstructive pulmonary disease, unspecified
CPT/HCPCS: 83036; 99213

== ENCOUNTER 2023-11-24 10:48 | Outpatient (REF) | payer OTHER, SELFPAY ==
[2023-11-24 11:02] LABS: MANUAL DIFF FLAG NO
[2023-11-24 12:00] LABS: Basophils Absolute Auto 0.1 X10*3/uL (0.0-0.2); Basophils Percent Auto 0.8 % (0-2); Eosinophils Absolute Auto 0.1 X10*3/uL (0.0-0.4); Eosinophils Percent Auto 0.8 % (0-4); Hematocrit 42.9 % (37.0-47.0); Hemoglobin 13.7 g/dl (12.0-16.0); Imm Gran Abs Auto 0.06 X10*3/uL (0.00-0.03); Imm Gran Pct Auto 0.4 % (0.0-0.4); Lymphocytes Absolute Auto 4.2 X10*3/uL (1.2-4.9); Lymphocytes Percent Auto 26.7 % (20-40); Mean Corpuscular HGB Conc 31.9 g/dl (31.0-35.0); Mean Corpuscular Hemoglobin 27.8 pg (27.0-33.0); Mean Platelet Volume 11.2 fL (9.4-12.3); Monocytes Percent Auto 6.3 % (2-11); Neutrophils Absolute Auto 10.3 x10*3/uL (2.0-8.3); Platelet Count 347 X10*3/uL (160-400); Red Blood Count 4.93 X10*6/uL (4.20-5.50); Red Cell Distribution Width 13.5 % (11.0-16.0); White Blood Count 15.8 X10*3/uL (4.8-10.8)
[2023-11-24 12:06] LABS: Estimated Average Glucose 154 mg/dL; Hemoglobin A1C 185.4102 umol/L; Total Hemoglobin (HGBA1C) 3479.2743 umol/L
[2023-11-24 12:32] LABS: Alanine Aminotransferase 23 U/L (0-31); Albumin Level 4.4 g/dL (3.5-5.0); Alkaline Phosphatase 107 U/L (39-117); Anion Gap 13 (12-20); Aspartate Amino Transferase 16 U/L (5-31); Bilirubin Total 0.3 mg/dL (0.0-1.0); Blood Urea Nitrogen 8 mg/dL (9-16); Carbon Dioxide 26 mmol/L (22-29); Chloride 103 mmol/L (96-108); Cholesterol 198 mg/dL (<200); Estimated Glomerular Filt Rate > 60; Glucose Fasting 155 mg/dL (60-99); HDL Cholesterol 39 mg/dL (>40); LDL Cholesterol Calculated 127 mg/dL (<100); Potassium 3.7 mmol/L (3.3-5.1); Sodium 138 mmol/L (135-145); Total Protein 7.2 g/dL (6.5-8.0); Triglycerides 164 mg/dL (<150)
== END 2023-11-24 10:49 | disposition home or self-care (01) ==
LOC: HO.LAB 10:48
PROVIDERS: PCP Internal Medicine; Visit Provider Internal Medicine
DX: R73.9 Hyperglycemia, unspecified (principal); Z13.220 Encounter for screening for lipoid disorders; Z13.0 Encounter for screening for diseases of the blood and blood-forming organs and certain disorders involving the immune mechanism; Z13.9 Encounter for screening, unspecified
CPT/HCPCS: 36415; 80053; 80061; 83036; 85025

== ENCOUNTER 2023-11-28 10:05 | Outpatient (AMB) | payer OTHER, SELFPAY ==
[2023-11-28 10:07] VITALS: BP 134/62; PULSE 83; O2SAT 94; BMI 32.8
--- NOTE | 2023-11-28 10:07 | MHC.PC.OV ---
Vital Signs 11/28/23 10:07 Height 5 ft 3 in Weight 185 lb BMI 32.8 BP 134/62 Blood Pressure Location Lt brachial Position Sitting Pulse 83 Pulse Source Pulse Oximeter Pulse Oximetry (%) 94 Oxygen Delivery Method Room Air Intake Visit Reasons: 3 mo f/u Chronic Care Nurse Required: No Accompanied by: Self / Same As Patient Allergies amoxicillin Allergy (Unknown, Verified 11/28/23 10:09) Unknown barium sulfate Allergy (Unknown, Verified 11/28/23 10:09) unknown cortisone [Cortisone] Allergy (Unknown, Verified 11/28/23 10:09) TREMORS ibuprofen [From Motrin] Allergy (Unknown, Verified 11/28/23 10:09) Unknown Penicillins [PENICILLINS] Allergy (Unknown, Verified 11/28/23 10:09) HIVES varenicline [From Chantix] Allergy (Unknown, Verified 11/28/23 10:09) Unknown Medication List - Last Reconciled 11/28/23 by Shiv Dodson MD albuterol sulfate 2.5 mg (3 mL) inhalation Q6-8H amlodipine 10 mg PO DAILY blood sugar diagnostic (FreeStyle Lite Strips) test blood sugar three times a day blood-glucose meter (FreeStyle Flash System kit) As directed blood-glucose meter (FreeStyle Lite Meter kit) As directed [id number] 50-325-40 mg 1 cap PO Q6H PRN fluticasone propionate 110 mcg/actuation (Flovent HFA) 1 puff PO BID hydrochlorothiazide 12.5 mg PO DAILY lorazepam 1 mg PO BID PRN metformin 1,000 mg PO BID ProAir HFA 90 mcg/actuation (albuterol sulfate) 2 puffs inhalation Q4H PRN NS tramadol 50 mg PO BID PRN walker (Ultra-Light Rollator misc) to use daily Tobacco use date assessed: 11/28/23 Dental Screening Dental Screen Date: 05/24/23 HPI 3 mo f/u HPI Details HTN on rx; doing well and compliant [facility] Medical History Obesity COPD (chronic obstructive pulmonary disease) Hypertension Surgical History History of thyroidectomy History of cholecystectomy Family History Father Medical history unknown Mother Emphysema of lung Social History Housing: Apartment Alcohol intake: never Patient Tobacco Use Status: Current everyday Tobacco user Tobacco use type: Cigarette Cigarettes Per Day: 4 e-Cigarette/Vaping Use: Never Used Second Hand Smoke Exposure: Yes service: No Current occupational status: disabled Cognitive needs: No (Walker) Hearing needs: No Vision needs: Yes (Glasses) Questionnaire PHQ-9 Over the last 2 weeks, how often have you been bothered by any of the following problems? 1. Little interest or pleasure in doing things: not at all 2. Feeling down, depressed, or hopeless: not at all 3. Trouble falling or staying asleep, or sleeping too much: not at all 4. Feeling tired or having little energy: not at all 5. Poor appetite or overeating: not at all 6. Feeling bad about yourself - or that you are a failure or have let yourself or your family down: not at all 7. Trouble concentrating on things, such as reading the newspaper or watching television: not at all 8. Moving or speaking so slowly that other people could have noticed. Or the opposite - being so fidgety or restless that you have been moving around a lot more than usual: not at all 9. Thoughts that you would be better off or of hurting yourself in some way: not at all Total score: 0 Depression Screening Interpretation: Negative Depression Screening Done: Yes 49828 - PHQ-9 Billing: Yes Source: Developed by Drs. Riley Acosta, Jay Valladares and colleagues, with an educational rudy from [employer]. Thrive Questionnaire Date Thrive assessed: 05/24/23 Are you currently unemployed and looking for a job?: No AUDIT C Alcohol Use Questionnaire (AUDIT-C) 1. How often do you have a drink containing alcohol?: Never Total Score: 0 Score Reviewed/Action Taken: Yes RANDA-7 AMB Questionnaire RANDA-7 Date RANDA - 7 assessed: 05/24/23 Source: Developed by Drs. Riley Acosta, Jay Valladares and colleagues, with an educational rduy from [employer]. Review of Systems Const Denies chills, Denies headache(s) and Denies weight loss ENT Denies headache(s) Card Denies chest pain, Denies syncope, Denies irregular heart rhythm and Denies dyspnea Resp Denies chest congestion, Denies cough and Denies dyspnea GI Denies abdominal pain, Denies change in stool character, Denies nausea and Denies vomiting Musc Denies deformity and Denies joint swelling Neuro Denies syncope and Denies headache(s) Physical exam (Primary Care) Vital Signs: Last Vital Signs Pulse 83 11/28/23 10:07 BP 134/62 11/28/23 10:07 Pulse Ox 94 11/28/23 10:07 Oxygen Delivery Method Room Air 11/28/23 10:07 BMI result Body Mass Index 32.8 Tobacco/Smoking Status: Tobacco use Status Tobacco use date assessed 11/28/23 11/28/23 10:12 Patient Tobacco Use Status Current everyday Tobacco 11/28/23 10:12 Tobacco use type Cigarette 11/28/23 10:12 e-Cigarette/Vaping Use Never Used 11/28/23 10:12 PHQ-9: PHQ-9 Score PHQ-9: Total score 0 11/28/23 10:12 Depression Screening Interpretation: Negative Thrive Assessment: Date of Thrive Assessment Date Thrive assessed 05/24/23 11/28/23 10:12 Const General: cooperative, comfortable, no acute distress and alert Neck Neck: Yes no lymphadenopathy Thyroid: Thyroid normal Resp Effort & Inspection: normal respiratory effort Auscultation: clear to auscultation bilaterally Percussion: percussion normal Cardio Jugular venous distension: no JVD Palpation: normal PMI Rate: regular rate Rhythm: regular rhythm Heart sounds: S1 normal heart sound present and S2 normal heart sound present GI Inspection: Yes normal to inspection Palpation (GI): No hepatosplenomegaly present Skin General skin exam: no rashes or lesions noted Extrem General: Yes no clubbing, cyanosis or edema Coding Level of Care Code Est Pt Level 3 (03024) Diagnoses Hypertension I10 Assessment & Plan Assessment & Plan (1) Hypertension: Code(s): I10 - Essential (primary) hypertension Category: Medical Plan: stable; same rx Orders: Orders Glucose Fasting Today R73.9 - Hyperglycemia, unspecified Lipid Panel Today Z13.220 - Encounter for screening for lipoid disorders Hemoglobin A1c Today R73.9 - Hyperglycemia, unspecified
== END 2023-11-28 10:19 | disposition home or self-care (01) ==
PROVIDERS: PCP Internal Medicine; Visit Provider Internal Medicine
DX: I10 Essential (primary) hypertension (principal)

== ENCOUNTER → 2023-11-28 10:05 | Outpatient (BNVA) | payer OTHER, SELFPAY | PROVIDERS: PCP Internal Medicine; Visit Provider Internal Medicine | DX: I10 Essential (primary) hypertension (principal); R73.9 Hyperglycemia, unspecified | CPT/HCPCS: 96127; 99212 ==

== ENCOUNTER 2024-02-28 10:19 | Outpatient (AMB) | payer OTHER, SELFPAY ==
--- NOTE | 2024-02-28 10:37 | A.OFFPC_ITS ---
Vital Signs 02/28/24 10:38 Height 5 ft 3 in Weight 186 lb 6 oz BMI 33.0 BP 110/66 Blood Pressure Location Lt brachial Position Sitting Pulse 78 Pulse Source Pulse Oximeter Pulse Oximetry (%) 98 Oxygen Delivery Method Room Air Intake Visit Reasons: 3mth f/u Intake Note: Patient is here to follow up on DM, HTN. Pt dceline flu shot today. 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 Accompanied by: Self / Same As Patient Allergies amoxicillin Allergy (Unknown, Verified 02/28/24 10:38) Unknown barium sulfate Allergy (Unknown, Verified 02/28/24 10:38) unknown cortisone [Cortisone] Allergy (Unknown, Verified 02/28/24 10:38) TREMORS ibuprofen [From Motrin] Allergy (Unknown, Verified 02/28/24 10:38) Unknown Penicillins [PENICILLINS] Allergy (Unknown, Verified 02/28/24 10:38) HIVES varenicline [From Chantix] Allergy (Unknown, Verified 02/28/24 10:38) Unknown Medication List - Last Reconciled 02/28/24 by Shiv Dodson MD albuterol sulfate 2.5 mg (3 mL) inhalation Q6-8H amlodipine 10 mg PO DAILY blood sugar diagnostic (FreeStyle Lite Strips) test blood sugar three times a day blood-glucose meter (FreeStyle Flash System kit) As directed blood-glucose meter (FreeStyle Lite Meter kit) As directed [id number] 50-325-40 mg 1 cap PO Q6H PRN fluticasone propionate 110 mcg/actuation (Flovent HFA) 1 puff PO BID hydrochlorothiazide 12.5 mg PO DAILY lorazepam 1 mg PO BID PRN metformin 1,000 mg PO BID ProAir HFA 90 mcg/actuation (albuterol sulfate) 2 puffs inhalation Q4H PRN NS tramadol 50 mg PO BID PRN walker (Ultra-Light Rollator misc) to use daily Tobacco use date assessed: 02/28/24 Dental Screening Dental Screen Date: 02/28/24 Did you have a dental visit in the last 12 months?: Yes Did you have a dental problem in the last 6 months where you did not have access to dental care?: No Was dental information given to patient?: Patient has dentist HPI 3mth f/u HPI Details DM on rx; doing well; compliant [facility] Medical History Obesity COPD (chronic obstructive pulmonary disease) Hypertension Surgical History History of thyroidectomy History of cholecystectomy Family History Father Medical history unknown Mother Emphysema of lung Social History Housing: Apartment Alcohol intake: never Patient Tobacco Use Status: Current everyday Tobacco user Tobacco use type: Cigarette Cigarette Packs Per Day: 0.25 Cigarettes Per Day: 3 e-Cigarette/Vaping Use: Never Used Second Hand Smoke Exposure: Yes service: No Current occupational status: disabled Cognitive needs: Yes (Walker) Hearing needs: No Vision needs: Yes (Glasses) Questionnaire PHQ-9 Over the last 2 weeks, how often have you been bothered by any of the following problems? 1. Little interest or pleasure in doing things: not at all 2. Feeling down, depressed, or hopeless: not at all 3. Trouble falling or staying asleep, or sleeping too much: not at all 4. Feeling tired or having little energy: not at all 5. Poor appetite or overeating: not at all 6. Feeling bad about yourself - or that you are a failure or have let yourself or your family down: not at all 7. Trouble concentrating on things, such as reading the newspaper or watching television: not at all 8. Moving or speaking so slowly that other people could have noticed. Or the opposite - being so fidgety or restless that you have been moving around a lot more than usual: not at all 9. Thoughts that you would be better off or of hurting yourself in some way: not at all Total score: 0 Depression Screening Interpretation: Negative Depression Screening Done: Yes Source: Developed by Drs. Riley Acosta, Sandie Quiroz, Jay Victor and colleagues, with an educational rudy from [employer]. Thrive Questionnaire Date Thrive assessed: 02/28/24 I am a: Patient What is your living situation today?: I have a steady place to live Within the past 12 months, did the food you bought not last and you didn't have the money to get more?: Never true Within the past 12 months, did you worry whether your food would run out before you got money to buy more?: Never true Do you have trouble paying for medicines?: No Do you have trouble getting transportation to medical appointments?: No Do you have trouble paying your heating and electricity bill?: No Do you have trouble taking care of your child, family member or friend?: No Do you have trouble with day-to-day activities such as bathing, preparing meals, shopping, managing finances, etc.?: No Are you currently unemployed and looking for a job?: No Are you interested in more education?: No Currently or been in a relationship where the following occur: No concerns reported THRIVE Score: 0 AUDIT C Alcohol Use Questionnaire (AUDIT-C) 1. How often do you have a drink containing alcohol?: Never Total Score: 0 RANDA-7 AMB Questionnaire RANDA-7 Date RANDA - 7 assessed: 02/28/24 Feeling nervous, anxious, or on edge: 0 = Not at all Not being able to stop or control worryin = Not at all Worrying too much about different things: 0 = Not at all Trouble relaxin = Not at all Being so restless that it is hard to sit still: 0 = Not at all Becoming easily annoyed or irritable: 0 = Not at all Feeling afraid as if something awful might happen: 0 = Not at all Total RANDA-7 score (0-4 normal; 5-9 mild; 10-14 moderate; 15-21 severe): 0 Source: Developed by Drs. Riley Acosta, Sandie Quiroz, Jay Victor and colleagues, with an educational rudy from [employer]. Review of Systems Const Denies chills, Denies headache(s) and Denies weight loss ENT Denies headache(s) Card Denies chest pain, Denies syncope, Denies irregular heart rhythm and Denies dyspnea Resp Denies chest congestion, Denies cough and Denies dyspnea GI Denies abdominal pain, Denies change in stool character, Denies nausea and Denies vomiting Musc Denies deformity and Denies joint swelling Neuro Denies syncope and Denies headache(s) Physical exam (Primary Care) Vital Signs: Last Vital Signs Pulse 78 02/28/24 10:38 BP 110/66 02/28/24 10:38 Pulse Ox 98 02/28/24 10:38 Oxygen Delivery Method Room Air 02/28/24 10:38 BMI result Body Mass Index 33.0 Tobacco/Smoking Status: Tobacco use Status Tobacco use date assessed 02/28/24 02/28/24 10:44 Patient Tobacco Use Status Current everyday Tobacco 02/28/24 10:44 Tobacco use type Cigarette 02/28/24 10:44 e-Cigarette/Vaping Use Never Used 02/28/24 10:44 PHQ-9: PHQ-9 Score PHQ-9: Total score 0 02/28/24 10:44 Depression Screening Interpretation: Negative Thrive Assessment: Date of Thrive Assessment Date Thrive assessed 02/28/24 02/28/24 10:44 Currently or been in a relationship where the following occur: No concerns reported Const General: cooperative, comfortable, no acute distress and alert Neck Neck: Yes no lymphadenopathy Thyroid: Thyroid normal Resp Effort & Inspection: normal respiratory effort Auscultation: clear to auscultation bilaterally Percussion: percussion normal Cardio Jugular venous distension: no JVD Palpation: normal PMI Rate: regular rate Rhythm: regular rhythm Heart sounds: S1 normal heart sound present and S2 normal heart sound present GI Inspection: Yes normal to inspection Palpation (GI): No hepatosplenomegaly present Skin General skin exam: no rashes or lesions noted Extrem General: Yes no clubbing, cyanosis or edema Results AMB Hemoglobin A1c AMB Hemoglobin A1c 7.1 % Last Edit by ELIZABETH English on 02/28/24 10:47 Results Reviewed Results Reviewed: Laboratory Last Values Hgb A1c (Clinic) 7.1 % (4.0-6.0) H 02/28/24 10:35 Coding Level of Care Code Est Pt Level 3 (49634) Diagnoses Diabetes mellitus with coincident hypertension E11.9; I10 Assessment & Plan Assessment & Plan (1) Diabetes mellitus with coincident hypertension: Code(s): E11.9 - Type 2 diabetes mellitus without complications; I10 - Essential (primary) hypertension Category: Medical Plan: stable; same rx Orders: Orders AMB Hemoglobin A1c Today E11.9 - Type 2 diabetes mellitus without complications, I10 - Essential (primary) hypertension Medications: Refilled hydrochlorothiazide 12.5 mg PO DAILY 90 tabs 8RF amlodipine 10 mg PO DAILY 90 tabs 8RF
[2024-02-28 10:38] VITALS: BP 110/66; PULSE 78; O2SAT 98; BMI 33.0
== END 2024-02-28 10:48 | disposition home or self-care (01) ==
PROVIDERS: PCP Internal Medicine; Visit Provider Internal Medicine
DX: E11.9 Type 2 diabetes mellitus without complications (principal); I10 Essential (primary) hypertension

== ENCOUNTER → 2024-02-28 10:19 | Outpatient (BNVA) | payer OTHER, SELFPAY | PROVIDERS: PCP Internal Medicine; Visit Provider Internal Medicine | DX: E11.9 Type 2 diabetes mellitus without complications (principal); I10 Essential (primary) hypertension | CPT/HCPCS: 83036; 96127; 99212 ==

== ENCOUNTER 2024-04-03 10:37 | Outpatient (AMB) | payer OTHER, SELFPAY ==
--- NOTE | 2024-04-03 10:59 | A.OFFPC_ITS ---
Vital Signs 04/03/24 11:00 Height 5 ft 3 in Weight 187 lb 4 oz BMI 33.2 BP 120/76 Blood Pressure Location Lt brachial Position Sitting Pulse 99 Pulse Source Pulse Oximeter Temp 97.1 F Temp Source Skin Pulse Oximetry (%) 94 Oxygen Delivery Method Room Air Intake Visit Reasons: ANDREW from Intake Note: Patient is here today for ANDREW from Dr Dodson Power Engineer Required: No Blocker Hand: Not Required per policy Accompanied by: Self / Same As Patient Allergies amoxicillin Allergy (Unknown, Verified 04/03/24 11:27) Unknown barium sulfate Allergy (Unknown, Verified 04/03/24 11:27) unknown cortisone [Cortisone] Allergy (Unknown, Verified 04/03/24 11:27) TREMORS ibuprofen [From Motrin] Allergy (Unknown, Verified 04/03/24 11:27) Unknown Penicillins [PENICILLINS] Allergy (Unknown, Verified 04/03/24 11:27) HIVES varenicline [From Chantix] Allergy (Unknown, Verified 04/03/24 11:27) Unknown Medication List - Last Reconciled 04/03/24 by HA Bermudez albuterol sulfate 2.5 mg (3 mL) inhalation Q6-8H albuterol sulfate 90 mcg/actuation 2 puffs inhalation Q4H PRN amlodipine 10 mg PO DAILY blood sugar diagnostic (FreeStyle Lite Strips) test blood sugar three times a day blood-glucose meter (FreeStyle Flash System kit) As directed blood-glucose meter (FreeStyle Lite Meter kit) As directed ngbsnfblhl-ozonbgl-dulwbiuh 50-325-40 mg 1 cap PO Q6H PRN hydrochlorothiazide 12.5 mg PO DAILY lorazepam 1 mg PO BID PRN metformin 1,000 mg PO BID tramadol 50 mg PO BID PRN walker (Ultra-Light Rollator misc) to use daily Tobacco use date assessed: 04/03/24 Dental Screening Dental Screen Date: 02/28/24 HPI ANDREW from HPI Details Patient is a 63-year-old female who was transferring care from Dr. Dodson (retiring) She was last seen on 02/28/2024 in office Significant past medical history diabetes, hypertension, COPD, obesity, knee pain, smoker Patient reports that she is feeling that and has no complaints today She requested new script for a new walker-reports that no one she has a as falling apart She endorses chronic lower back pain, reports disc issues in legs giving out She declined, PT evaluation reports that she would think about it Inspiratory wheezes throughout with the exam, denies shortness of breath Reports still smoking, down to 2 a day now Denies chest pain, denies heart palpitation and dizziness Reports that she is moving her bowels okay and has no abdominal pain Denies dysuria PFSH Medical History Obesity COPD (chronic obstructive pulmonary disease) Hypertension Surgical History History of thyroidectomy History of cholecystectomy Family History Father Medical history unknown Mother Emphysema of lung Social History Housing: Apartment Alcohol intake: never Patient Tobacco Use Status: Current everyday Tobacco user Tobacco use type: Cigarette Cigarette Packs Per Day: 0.25 Cigarettes Per Day: 3 e-Cigarette/Vaping Use: Never Used Second Hand Smoke Exposure: Yes service: No Current occupational status: disabled Cognitive needs: Yes (Walker) Hearing needs: No Vision needs: Yes (Glasses) Questionnaire Thrive Questionnaire Date Thrive assessed: 02/28/24 RANDA-7 AMB Questionnaire RANDA-7 Date RANDA - 7 assessed: 02/28/24 Source: Developed by Drs. Riley Acosta, Sandie Quiroz, Jay Victor and colleagues, with an educational rudy from [employer]. Review of Systems Const Details: Denies chills, Denies fatigue, Denies fever(s), Denies headache(s) and Denies weakness HEENT Denies change in vision, Denies dizziness, Denies headache(s), Denies hearing loss, Denies nasal congestion, Denies sinus pain, Denies sinus pressure and Denies sore throat Card Denies chest pain, Denies lightheadedness, Denies dyspnea and Denies other (palpitations) Resp Denies cough, Denies dyspnea and Denies wheezing GI Denies abdominal pain, Denies melena, Denies hematochezia, Denies change in bowel habits, Denies dyspepsia and Denies nausea Denies hematuria and Denies dysuria Musc Denies abnormal gait, Denies myalgias, +arthralgias (chronic lower back pain, knees giving out intermittently), Denies numbness and Denies tingling Skin/Breast Denies rash, Denies unusual bruising and Denies wounds Neuro Denies abnormal gait, Denies dizziness, Denies headache(s), Denies memory loss, Denies numbness, Denies Sensory deficit (Neuro), Denies tingling and Denies weakness Psych Denies anxiety, Denies depression and Denies memory loss Endo Denies cold intolerance, Denies fatigue, Denies heat intolerance, Denies polydipsia and Denies polyuria Chris/Lymph Denies easy bleeding and Denies easy bruising Aller/Immun Denies wheezing Physical exam (Primary Care) Vital Signs: Last Vital Signs Temp 97.1 F 04/03/24 11:00 Pulse 99 04/03/24 11:00 BP 120/76 04/03/24 11:00 Pulse Ox 94 04/03/24 11:00 Oxygen Delivery Method Room Air 04/03/24 11:00 BMI result Body Mass Index 33.2 Tobacco/Smoking Status: Tobacco use Status Tobacco use date assessed 04/03/24 04/03/24 11:09 Patient Tobacco Use Status Current everyday Tobacco 04/03/24 11:09 Tobacco use type Cigarette 04/03/24 11:09 e-Cigarette/Vaping Use Never Used 04/03/24 11:09 Thrive Assessment: Date of Thrive Assessment Date Thrive assessed 02/28/24 04/03/24 11:09 Coding Level of Care Code Est Pt Level 4 (84060) Diagnoses Hypertension due to endocrine disorder I15.2 Hypertension type: secondary to endocrine disorders Chronic obstructive pulmonary disease, unspecified COPD type J44.9 COPD type: unspecified COPD Obesity, unspecified class, unspecified obesity type, unspecified whether serious comorbidity present E66.9 Obesity classification: unspecified obesity classification Obesity type: unspecified obesity type Serious obesity comorbidity presence: unspecified whether serious comorbidity present Chronic pain of both knees M25.561; M25.562; G89.29 Chronicity: chronic Laterality: bilateral Diabetes mellitus with coincident hypertension E11.9; I10 Time Spent (min) 34 Assessment & Plan Assessment & Plan (1) Hypertension: Code(s): I10 - Essential (primary) hypertension Category: Medical Qualifiers: Hypertension type: secondary to endocrine disorders Qualified Code(s): I15.2 - Hypertension secondary to endocrine disorders Plan: Reinforced low-sodium diet Continue amlodipine 10 mg daily, hydrochlorothiazide 12.5 mg daily (2) COPD (chronic obstructive pulmonary disease): Code(s): J44.9 - Chronic obstructive pulmonary disease, unspecified Category: Medical Qualifiers: COPD type: unspecified COPD Qualified Code(s): J44.9 - Chronic obstructive pulmonary disease, unspecified Plan: Inspiratory wheezes throughout. Denies shortness of breath. Endorses smoking cigarettes Continue rescue inhaler as needed (3) Obesity: Code(s): E66.9 - Obesity, unspecified Category: Medical Qualifiers: Obesity classification: unspecified obesity classification Obesity type: unspecified obesity type Serious obesity comorbidity presence: unspecified whether serious comorbidity present Qualified Code(s): E66.9 - Obesity, unspecified Plan: Diet/exercise discussed in detail Encouraged to exercise for at least 30 minutes a day/5 days a week Healthy eating discussed. Encouraged to eat fruits/vegetables, protein- fish/baked chicken, and to avoid salty/fried foods, sweets, caffeine and carbohydrates. Encouraged to increase water intake 6-8 glasses a day (4) Knee pain: Code(s): M25.569 - Pain in unspecified knee Category: Medical Qualifiers: Chronicity: chronic Laterality: bilateral Qualified Code(s): M25.561 - Pain in right knee; M25.562 - Pain in left knee; G89.29 - Other chronic pain Plan: Continue tramadol 50 mg b.i.d. p.r.n. Patient declines PT evaluation, reports that she will think about it (5) Diabetes mellitus with coincident hypertension: Code(s): E11.9 - Type 2 diabetes mellitus without complications; I10 - Essential (primary) hypertension Category: Medical Plan: last a1c 7.1% on 02/28/24 Continue metformin 1000 mg b.i.d. Reinforced low sugar/carbohydrate diet and activity as tolerated Plan Patient to return in 3 months for evaluation of chronic conditions. Blood work ordered to be completed prior to this appointment Orders: Orders Complete Blood Count Auto Diff 3 Months E11.9 - Type 2 diabetes mellitus without complications, E66.9 - Obesity, unspecified, I10 - Essential (primary) hypertension, J44.9 - Chronic obstructive pulmonary disease, unspecified, M25.569 - Pain in unspecified knee, M54.50 - Low back pain, unspecified Lipid Panel 3 Months E11.9 - Type 2 diabetes mellitus without complications, E66.9 - Obesity, unspecified, I10 - Essential (primary) hypertension, J44.9 - Chronic obstructive pulmonary disease, unspecified, M25.569 - Pain in unspecified knee, M54.50 - Low back pain, unspecified UA CC w/rflx Micro + Cult 3 Months E11.9 - Type 2 diabetes mellitus without complications, E66.9 - Obesity, unspecified, I10 - Essential (primary) hypertension, J44.9 - Chronic obstructive pulmonary disease, unspecified, M25.569 - Pain in unspecified knee, M54.50 - Low back pain, unspecified Hemoglobin A1c 3 Months E11.9 - Type 2 diabetes mellitus without complications, E66.9 - Obesity, unspecified, I10 - Essential (primary) hypertension, J44.9 - Chronic obstructive pulmonary disease, unspecified, M25.569 - Pain in unspecified knee, M54.50 - Low back pain, unspecified Comprehensive [place]. Panel Fast 3 Months E11.9 - Type 2 diabetes mellitus without complications, E66.9 - Obesity, unspecified, I10 - Essential (primary) hypertension, J44.9 - Chronic obstructive pulmonary disease, unspecified, M25.569 - Pain in unspecified knee, M54.50 - Low back pain, unspecified Vitamin D 25-OH Total 3 Months E11.9 - Type 2 diabetes mellitus without complications, E66.9 - Obesity, unspecified, I10 - Essential (primary) hypertension, J44.9 - Chronic obstructive pulmonary disease, unspecified, M25.569 - Pain in unspecified knee, M54.50 - Low back pain, unspecified Medications: New [Walker(Ultra-Light Rollator misc)] As directed 1 ea 0RF E66.9 - Obesity, unspecified, J44.9 - Chronic obstructive pulmonary disease, unspecified, M25.569 - Pain in unspecified knee, M54.50 - Low back pain, unspecified Changed From ProAir HFA 90 mcg/actuation (albuterol sulfate) 2 puffs inhalation Q4H PRN 8.5 grams 8RF bronchospasm NS To albuterol sulfate 90 mcg/actuation 2 puffs inhalation Q4H PRN 8.5 grams 8RF bronchospasm Refilled blood sugar diagnostic (FreeStyle Lite Strips) test blood sugar three times a day 100 ea 0RF blood-glucose meter (FreeStyle Lite Meter kit) As directed 1 ea 0RF
[2024-04-03 11:00] VITALS: BP 120/76; PULSE 99; TEMP 36.2; O2SAT 94; BMI 33.2
--- OUTSIDE RECORDS SUMMARY | 2024-04-03 11:52 | XMS_ITS | Clinical Summary ---
Author Organization [facility] ity Address [address] [place] [address] Care Team Providers Care Broomcorn Grader Name Role Phone Unavailable Primary Care Provider Unavailabl e Social History Tobacco Use Types Packs/Day Years Used Date Smoking Tobacco: Never Assessed Comments Unknown Sex and Gender Information Value Date Recorded Sex Assigned at Not on file Legal Sex Female 10:35 PM EST Gender Identity Not on file Sexual Orientation Not on file Plan of Treatment Health Maintenance Due Date Last Done Comments Breast Cancer Screening 1960 DTaP,Tdap,and Td Vaccines (1 - Tdap) 09/02/1967 Cervical Cancer Screening: P ap Smear 1981 Pneumococcal Vaccine: 50+ Ye ars (1 of 1 - PCV) 2010 Zoster Vaccines (1 of 2) 2010 COVID-19 Vaccine (1 - 2023-2 5 season) 2023 Influenza Vaccine (#1) 2023 RSV Immunization Patients 60 + Years Old (1 - 1-dose 75+ series) 09/02/2035 HIB Vaccines Aged Out No longer eligi ble based on patient's age to complete this topic HPV Vaccines Aged Out No longer eligi ble based on patient's age to complete this topic Hepatitis A Vaccines Aged Out No long er eligible based on patient's age to complete this topic Hepatitis B Vaccines Aged Out No long er eligible based on patient's age to complete this topic IPV Vaccines Aged Out No longer eligi ble based on patient's age to complete this topic MMR Vaccines Aged Out No longer eligi ble based on patient's age to complete this topic Meningococcal ACWY Vaccine Aged Out N o longer eligible based on patient's age to complete this topic Meningococcal B Vacine Aged Out No lo nger eligible based on patient's age to complete this topic Pneumococcal Vaccine: Pediat rics (0 to 5 Years) and At-Risk Patients (6 to 64 Years) Aged Out No longer eligible b ased on patient's age to complete this topic RSV Immunization Patients Un yudy 20 months Aged Out No longer eligible b ased on patient's age to complete this topic Varicella Vaccines Aged Out No longer eligible based on patient's age to complete this topic
== END 2024-04-03 11:42 | disposition home or self-care (01) ==
PROVIDERS: PCP Internal Medicine
DX: E11.9 Type 2 diabetes mellitus without complications (principal); J44.9 Chronic obstructive pulmonary disease, unspecified; E66.9 Obesity, unspecified; Z68.33 Body mass index [BMI] 33.0-33.9, adult; I15.2 Hypertension secondary to endocrine disorders; M25.561 Pain in right knee; M25.562 Pain in left knee; G89.29 Other chronic pain; I10 Essential (primary) hypertension

== ENCOUNTER → 2024-04-03 10:37 | Outpatient (BNVA) | payer OTHER, SELFPAY | PROVIDERS: PCP Internal Medicine | DX: I15.2 Hypertension secondary to endocrine disorders (principal); E11.9 Type 2 diabetes mellitus without complications; J44.9 Chronic obstructive pulmonary disease, unspecified; E66.9 Obesity, unspecified; M25.561 Pain in right knee; M25.562 Pain in left knee; G89.29 Other chronic pain | CPT/HCPCS: 99212 ==

== ENCOUNTER 2024-06-04 09:46 | Outpatient (REF) | payer OTHER, SELFPAY ==
[2024-06-04 10:07] LABS: MANUAL DIFF FLAG NO
--- OUTSIDE RECORDS SUMMARY | 2024-06-04 10:58 | XMS_ITS | Clinical Summary ---
[facility] [address] [place] [address] Care Team Providers Care Personal Shopper Name Role Phone Unavailable Primary Care Provider [...] 1960 DTaP,Tdap,and Td Vaccines (1 - Tdap) 09/02/1979 Cervical Cancer Screening: P ap Smear 1981 Pneumococcal Vaccine: 50+ Ye ars (1 of 1 - PCV) 2010 Zoster Vaccines (1 of 2) 2010 COVID-19 Vaccine ( - 2023-2 5 season) 2023 Influenza Vaccine (Season Ended) 2024 RSV Immunization Adult Patie nts (1 - 1-dose 75+ series) 09/02/2035 HIB [...] age to complete this topic Meningococcal B Vaccine Aged Out No l onger eligible based on patient's age to complete [...]
[2024-06-04 11:06] LABS: Basophils Absolute Auto 0.1 X10*3/uL (0.0-0.2); Basophils Percent Auto 0.8 % (0-2); Eosinophils Absolute Auto 0.1 X10*3/uL (0.0-0.4); Eosinophils Percent Auto 1.1 % (0-4); Hematocrit 43.6 % (37.0-47.0); Hemoglobin 14.2 g/dl (12.0-16.0); Imm Gran Abs Auto 0.04 X10*3/uL (0.00-0.03); Imm Gran Pct Auto 0.3 % (0.0-0.4); Lymphocytes Absolute Auto 4.2 X10*3/uL (1.2-4.9); Lymphocytes Percent Auto 34.1 % (20-40); Mean Corpuscular HGB Conc 32.6 g/dl (31.0-35.0); Mean Corpuscular Hemoglobin 28.5 pg (27.0-33.0); Mean Corpuscular Volume 87.6 fL (80.0-98.0); Mean Platelet Volume 11.4 fL (9.4-12.3); Monocytes Absolute Auto 0.6 X10*3/uL (0.1-1.2); Monocytes Percent Auto 5.1 % (2-11); Neutrophils Absolute Auto 7.2 x10*3/uL (2.0-8.3); Neutrophils Percent Auto 58.6 % (45-73); Platelet Count 333 X10*3/uL (160-400); Red Blood Count 4.98 X10*6/uL (4.20-5.50); Red Cell Distribution Width 13.2 % (11.0-16.0); White Blood Count 12.3 X10*3/uL (4.8-10.8)
[2024-06-04 11:16] LABS: Estimated Average Glucose 157 mg/dL; Hemoglobin A1C 203.0896 umol/L; Hemoglobin A1c % 7.1 % (<6.0)
[2024-06-04 12:04] LABS: Alanine Aminotransferase 33 U/L (0-31); Albumin Level 4.5 g/dL (3.5-5.0); Alkaline Phosphatase 108 U/L (39-117); Anion Gap 12 (12-20); Aspartate Amino Transferase 20 U/L (5-31); Bilirubin Total 0.2 mg/dL (0.0-1.0); Blood Urea Nitrogen 6 mg/dL (9-16); Calcium 9.9 mg/dL (8.4-10.2); Carbon Dioxide 27 mmol/L (22-29); Chloride 103 mmol/L (96-108); Cholesterol 195 mg/dL (<200); Estimated Glomerular Filt Rate > 60; Glucose Fasting 176 mg/dL (60-99); HDL Cholesterol 37 mg/dL (>40); Potassium 3.9 mmol/L (3.3-5.1); Sodium 138 mmol/L (135-145); Total Protein 7.3 g/dL (6.5-8.0); Triglycerides 450 mg/dL (<150)
[2024-06-04 12:07] LABS: Vitamin D 25-OH Total 50.7 ng/mL (>30)
== END 2024-06-04 09:47 | disposition home or self-care (01) ==
LOC: HO.LAB 09:46
DX: E11.9 Type 2 diabetes mellitus without complications (principal); I10 Essential (primary) hypertension; E66.9 Obesity, unspecified; J44.9 Chronic obstructive pulmonary disease, unspecified; M25.569 Pain in unspecified knee; M54.50 Low back pain, unspecified
CPT/HCPCS: 36415; 80053; 80061; 82306; 83036; 85025

== ENCOUNTER 2024-07-03 10:57 | Outpatient (REF) | payer OTHER, SELFPAY ==
[2024-07-03 11:33] LABS: Appearance Urine Clear; Color Urine Yellow; Glucose Urine UA Negative (Negative); Leukocyte Esterase Urine Trace (Negative); Nitrite Urine Positive (Negative); PH 5.5 (5.0-9.0); Specific Gravity - Urine 1.015 (1.005-1.025); UMIC TRIGGER UACC YES; Urine Blood Small (1+) (Negative); Urine Ketones Negative (Negative); Urine Protein Trace mg/dL (Neg-Trace)
[2024-07-03 11:52] LABS: Bacteria Urine 4+ (None Seen); Hyaline Casts Urine 0-2 /LPF (0-2); Squamous Epithelial Cell Urine 0-2 /HPF (0-2); UACC Culture Trigger YES
== END 2024-07-03 10:58 | disposition home or self-care (01) ==
LOC: HO.LNP 10:57
DX: E11.9 Type 2 diabetes mellitus without complications (principal); E78.2 Mixed hyperlipidemia; M54.50 Low back pain, unspecified; G89.29 Other chronic pain; E66.9 Obesity, unspecified; Z68.32 Body mass index [BMI] 32.0-32.9, adult; I15.2 Hypertension secondary to endocrine disorders; J44.9 Chronic obstructive pulmonary disease, unspecified; R74.01 Elevation of levels of liver transaminase levels; Z79.84 Long term (current) use of oral hypoglycemic drugs; Z79.899 Other long term (current) drug therapy
CPT/HCPCS: 81001; 83036; 87086; 99212

== ENCOUNTER 2024-07-03 10:57 | Outpatient (AMB) | payer OTHER, SELFPAY ==
[2024-07-03 11:16] VITALS: BP 104/62; PULSE 56; RESP 18; TEMP 36.3; O2SAT 96; BMI 32.2
--- NOTE | 2024-07-03 11:16 | A.OFFPC_ITS ---
Vital Signs 07/03/24 11:16 Height 5 ft 3 in Weight 181 lb 14.102 oz BMI 32.2 BP 104/62 Blood Pressure Location Lt brachial Position Sitting Respiration 18 Pulse 56 Pulse Source Pulse Oximeter Temp 97.4 F Temp Source Oral Pulse Oximetry (%) 96 Oxygen Delivery Method Room Air Intake Visit Reasons: 3 MO FOLLOW UP Loan Adviser Required: No Accompanied by: Self / Same As Patient Allergies amoxicillin Allergy (Unknown, Verified 07/03/24 11:53) Unknown barium sulfate Allergy (Unknown, Verified 07/03/24 11:53) unknown cortisone [Cortisone] Allergy (Unknown, Verified 07/03/24 11:53) TREMORS ibuprofen [From Motrin] Allergy (Unknown, Verified 07/03/24 11:53) Unknown Penicillins [PENICILLINS] Allergy (Unknown, Verified 07/03/24 11:53) HIVES varenicline [From Chantix] Allergy (Unknown, Verified 07/03/24 11:53) Unknown Medication List - Last Reconciled 07/03/24 by HA Bermudez albuterol sulfate 2.5 mg (3 mL) inhalation Q6-8H albuterol sulfate 90 mcg/actuation 2 puffs inhalation Q4H PRN amlodipine 10 mg PO DAILY blood sugar diagnostic (FreeStyle Lite Strips) test blood sugar three times a day blood-glucose meter (FreeStyle Flash System kit) As directed blood-glucose meter (FreeStyle Lite Meter kit) As directed parxjlqxbr-gwhxqbb-tvgzgxpd 50-325-40 mg 1 cap PO Q6H PRN hydrochlorothiazide 12.5 mg PO DAILY lorazepam 1 mg PO BID PRN metformin 1,000 mg PO BID tramadol 50 mg PO BID PRN walker (Ultra-Light Rollator misc) to use daily [Walker(Ultra-Light Rollator misc) As directed] Tobacco use date assessed: 07/03/24 Dental Screening Dental Screen Date: 07/03/24 Did you have a dental visit in the last 12 months?: No Did you have a dental problem in the last 6 months where you did not have access to dental care?: No Was dental information given to patient?: Patient has dentist HPI 3 MO FOLLOW UP HPI Details follow up on the patient urine culture started the patient on gemfibrozil 600mg daily +nitrate and trace leukocytes in urine FORMERLY [facility], 1928[facility]1983 Medical History Obesity COPD (chronic obstructive pulmonary disease) Hypertension Surgical History History of thyroidectomy History of cholecystectomy Family History Father Medical history unknown Mother Emphysema of lung Social History Housing: Apartment Alcohol intake: never Patient Tobacco Use Status: Current everyday Tobacco user Tobacco use type: Cigarette Cigarettes Per Day: 2 e-Cigarette/Vaping Use: Never Used Second Hand Smoke Exposure: Yes service: No Current occupational status: disabled Cognitive needs: Yes (Walker) Hearing needs: No Vision needs: Yes (Glasses) Questionnaire PHQ-9 Over the last 2 weeks, how often have you been bothered by any of the following problems? 1. Little interest or pleasure in doing things: not at all 2. Feeling down, depressed, or hopeless: not at all 3. Trouble falling or staying asleep, or sleeping too much: several days 4. Feeling tired or having little energy: not at all 5. Poor appetite or overeating: not at all 7. Trouble concentrating on things, such as reading the newspaper or watching television: not at all 8. Moving or speaking so slowly that other people could have noticed. Or the opposite - being so fidgety or restless that you have been moving around a lot more than usual: not at all 9. Thoughts that you would be better off or of hurting yourself in some way: not at all Depression Screening Interpretation: Negative Depression Screening Done: Yes 45241 - PHQ-9 Billing: Yes Source: Developed by Drs. Riley Acosta, Sandie Quiroz, Jay Victor and colleagues, with an educational rudy from [employer]. Thrive Questionnaire Date Thrive assessed: 07/03/24 I am a: Patient What is your living situation today?: I have a steady place to live Within the past 12 months, did the food you bought not last and you didn't have the money to get more?: Never true Within the past 12 months, did you worry whether your food would run out before you got money to buy more?: Never true Do you have trouble paying for medicines?: No Do you have trouble getting transportation to medical appointments?: No Do you have trouble paying your heating and electricity bill?: No Do you have trouble taking care of your child, family member or friend?: No Do you have trouble with day-to-day activities such as bathing, preparing meals, shopping, managing finances, etc.?: No Are you currently unemployed and looking for a job?: No Are you interested in more education?: No Please select the resources that you would like help with: None Currently or been in a relationship where the following occur: No concerns reported THRIVE Score: 0 AUDIT C Alcohol Use Questionnaire (AUDIT-C) 1. How often do you have a drink containing alcohol?: Never Total Score: 0 Score Reviewed/Action Taken: No RANDA-7 AMB Questionnaire RANDA-7 Date RANDA - 7 assessed: 07/03/24 Feeling nervous, anxious, or on edge: 0 = Not at all Not being able to stop or control worryin = Not at all Worrying too much about different things: 0 = Not at all Trouble relaxin = Not at all Being so restless that it is hard to sit still: 0 = Not at all Becoming easily annoyed or irritable: 0 = Not at all Feeling afraid as if something awful might happen: 0 = Not at all Total RANDA-7 score (0-4 normal; 5-9 mild; 10-14 moderate; 15-21 severe): 0 Source: Developed by Drs. Riley Acosta, Sandie Quiroz, Jay Victor and colleagues, with an educational rudy from [employer]. RANDA-7 Assessment Billing RANDA-7 Assessment Tool: RANDA-7 Assessment 12920 Physical exam (Primary Care) Vital Signs: Last Vital Signs Temp 97.4 F 07/03/24 11:16 Pulse 56 07/03/24 11:16 Resp 18 07/03/24 11:16 BP 104/62 07/03/24 11:16 Pulse Ox 96 07/03/24 11:16 Oxygen Delivery Method Room Air 07/03/24 11:16 BMI result Body Mass Index 32.2 Tobacco/Smoking Status: Tobacco use Status Tobacco use date assessed 07/03/24 07/03/24 11:19 Patient Tobacco Use Status Current everyday Tobacco 07/03/24 11:19 Tobacco use type Cigarette 07/03/24 11:19 e-Cigarette/Vaping Use Never Used 07/03/24 11:19 Depression Screening Interpretation: Negative Thrive Assessment: Date of Thrive Assessment Date Thrive assessed 07/03/24 07/03/24 11:33 Currently or been in a relationship where the following occur: No concerns reported Results AMB Hemoglobin A1c AMB Hemoglobin A1c 7.4 % Last Edit by Anh Overton CMA on 07/03/24 11:35 Results Reviewed Results Reviewed: Laboratory Last Values Hgb A1c (Clinic) 7.4 % (4.0-6.0) H 07/03/24 11:34 Coding Additional Codes RANDA-7 Assessment Billing - RANDA-7 Assessment Tool: RANDA-7 Assessment 97987 ([id number]) PHQ-9 - 89591 - PHQ-9 Billing: Yes ([id number]) Assessment & Plan Assessment & Plan Orders: Orders Comprehensive [place]. Panel Fast 3 Months E11.9 - Type 2 diabetes mellitus without complications, E66.9 - Obesity, unspecified, E78.2 - Mixed hyperlipidemia, I10 - Essential (primary) hypertension, I15.2 - Hypertension secondary to endocrine disorders, J44.9 - Chronic obstructive pulmonary disease, unspecified Lipid Panel 3 Months E11.9 - Type 2 diabetes mellitus without complications, E66.9 - Obesity, unspecified, E78.2 - Mixed hyperlipidemia, I10 - Essential (primary) hypertension, I15.2 - Hypertension secondary to endocrine disorders, J44.9 - Chronic obstructive pulmonary disease, unspecified TSH reflex Free T4 3 Months E11.9 - Type 2 diabetes mellitus without complications, E66.9 - Obesity, unspecified, E78.2 - Mixed hyperlipidemia, I10 - Essential (primary) hypertension, I15.2 - Hypertension secondary to endocrine disorders, J44.9 - Chronic obstructive pulmonary disease, unspecified AMB Hemoglobin A1c Today E11.9 - Type 2 diabetes mellitus without complications, I10 - Essential (primary) hypertension Complete Blood Count Auto Diff 3 Months E11.9 - Type 2 diabetes mellitus without complications, E66.9 - Obesity, unspecified, E78.2 - Mixed hyperlipidemia, I10 - Essential (primary) hypertension, I15.2 - Hypertension secondary to endocrine disorders, J44.9 - Chronic obstructive pulmonary disease, unspecified UA CC w/rflx Micro + Cult 3 Months E11.9 - Type 2 diabetes mellitus without complications, E66.9 - Obesity, unspecified, E78.2 - Mixed hyperlipidemia, I10 - Essential (primary) hypertension, I15.2 - Hypertension secondary to endocrine disorders, J44.9 - Chronic obstructive pulmonary disease, unspecified Hemoglobin A1c 3 Months E11.9 - Type 2 diabetes mellitus without complications, E66.9 - Obesity, unspecified, E78.2 - Mixed hyperlipidemia, I10 - Essential (primary) hypertension, I15.2 - Hypertension secondary to endocrine disorders, J44.9 - Chronic obstructive pulmonary disease, unspecified Vitamin D 25-OH Total 3 Months E11.9 - Type 2 diabetes mellitus without complications, E66.9 - Obesity, unspecified, E78.2 - Mixed hyperlipidemia, I10 - Essential (primary) hypertension, I15.2 - Hypertension secondary to endocrine disorders, J44.9 - Chronic obstructive pulmonary disease, unspecified Medications: New gemfibrozil 600 mg PO DAILY 90 tabs 2RF Refilled albuterol sulfate 2.5 mg (3 mL) inhalation Q6-8H 90 mL 3RF albuterol sulfate 90 mcg/actuation 2 puffs inhalation Q4H PRN 8.5 grams 3RF bronchospasm
--- OUTSIDE RECORDS SUMMARY | 2024-07-03 12:25 | XMS_ITS | Clinical Summary ---
Author Organization [facility] it[facility] Address [address] [place] [address] Care Team Providers Care Flight Operations Dispatch Clerk Name Role Phone Unavailable Primary Care Provider [...]
== END 2024-07-03 12:10 | disposition home or self-care (01) ==
LOC: HO.HMCH 10:58
DX: E11.9 Type 2 diabetes mellitus without complications (principal); I10 Essential (primary) hypertension

== ENCOUNTER 2024-09-03 10:34 | Outpatient (REF) | payer OTHER, SELFPAY ==
[2024-09-03 10:44] LABS: MANUAL DIFF FLAG NO
[2024-09-03 10:59] LABS: Hematocrit 41.2 % (37.0-47.0); Hemoglobin 13.5 g/dl (12.0-16.0); Imm Gran Abs Auto 0.03 X10*3/uL (0.00-0.03); Imm Gran Pct Auto 0.3 % (0.0-0.4); Lymphocytes Absolute Auto 3.8 X10*3/uL (1.2-4.9); Mean Corpuscular HGB Conc 32.8 g/dl (31.0-35.0); Mean Corpuscular Hemoglobin 28.4 pg (27.0-33.0); Mean Corpuscular Volume 86.7 fL (80.0-98.0); NRBC Abs Auto 0.000 X10*3/uL (0.0-0.012); NRBC Pct Auto 0.0 /100WBC (0.0-0.2); Platelet Count 340 X10*3/uL (160-400); Red Blood Count 4.75 X10*6/uL (4.20-5.50); White Blood Count 11.3 X10*3/uL (4.8-10.8)
[2024-09-03 11:06] LABS: Hemoglobin A1C 192.9659 umol/L; Total Hemoglobin (HGBA1C) 3599.2608 umol/L
--- OUTSIDE RECORDS SUMMARY | 2024-09-03 11:26 | XMS_ITS | Clinical Summary ---
[facility] [address] [place] [address] Care Team Providers Care Rag Collector Name Role Phone Unavailable Primary Care Provider [...] 2023-2 5 season) 2023 Influenza Vaccine (#1) 2024 RSV Immunization Adult Patie nts (1 [...] 5 Years) and At-Risk Patients (6 to 49 Years) Aged Out No longer eligible b ased on patient's age to complete this topic RSV Immunization Patients Un yudy 20 months Aged Out No longer eligible b ased on patient's age to complete this topic Varicella Vaccines Aged Out No longer eligible based on patient's age to complete this topic
[2024-09-03 11:52] LABS: Appearance Urine Clear; Glucose Urine UA Negative (Negative); PH 6.0 (5.0-9.0); Specific Gravity - Urine <= 1.005 (1.005-1.025)
[2024-09-03 12:07] LABS: Alanine Aminotransferase 27 U/L (0-31); Albumin Level 4.8 g/dL (3.5-5.0); Alkaline Phosphatase 85 U/L (39-117); Anion Gap 13 (12-20); Aspartate Amino Transferase 23 U/L (5-31); Blood Urea Nitrogen 9 mg/dL (9-16); Calcium 10.0 mg/dL (8.4-10.2); Carbon Dioxide 25 mmol/L (22-29); Chloride 104 mmol/L (96-108); Cholesterol 155 mg/dL (<200); Estimated Glomerular Filt Rate > 60; HDL Cholesterol 32 mg/dL (>40); Potassium 3.8 mmol/L (3.3-5.1); Sodium 138 mmol/L (135-145); Total Protein 7.4 g/dL (6.5-8.0); Triglycerides 176 mg/dL (<150)
== END 2024-09-03 10:35 | disposition home or self-care (01) ==
LOC: HO.LAB 10:34
DX: E11.9 Type 2 diabetes mellitus without complications (principal); I15.2 Hypertension secondary to endocrine disorders; J44.9 Chronic obstructive pulmonary disease, unspecified; M25.569 Pain in unspecified knee; M54.50 Low back pain, unspecified; E66.9 Obesity, unspecified; E78.2 Mixed hyperlipidemia
CPT/HCPCS: 36415; 80053; 80061; 81003; 82306; 83036; 84443; 85025

== ENCOUNTER 2024-10-04 10:59 | Outpatient (AMB) | payer OTHER, SELFPAY ==
[2024-10-04 11:05] VITALS: BP 110/60; PULSE 89; RESP 18; O2SAT 97; BMI 31.7
--- NOTE | 2024-10-04 11:05 | A.OFFPC_ITS ---
Vital Signs 10/04/24 11:05 Height 5 ft 3 in Weight 179 lb 4 oz BMI 31.7 BP 110/60 Blood Pressure Location Lt brachial Position Sitting Respiration 18 Pulse 89 Pulse Source Pulse Oximeter Pulse Oximetry (%) 97 Oxygen Delivery Method Room Air Intake Visit Reasons: htn/elevated triglycerides/copd Regional Director Required: No Accompanied by: Self / Same As Patient Allergies amoxicillin Allergy (Unknown, Verified 07/03/24 11:53) Unknown barium sulfate Allergy (Unknown, Verified 07/03/24 11:53) unknown cortisone (Cortisone) Allergy (Unknown, Verified 07/03/24 11:53) TREMORS ibuprofen (From Motrin) Allergy (Unknown, Verified 07/03/24 11:53) Unknown Penicillins (PENICILLINS) Allergy (Unknown, Verified 07/03/24 11:53) HIVES varenicline (From Chantix) Allergy (Unknown, Verified 07/03/24 11:53) Unknown Tobacco use date assessed: 10/04/24 Fall risk assessment: No Falls in past year Last assessed Fall Risk: 10/04/24 Dental Screening Dental Screen Date: 10/04/24 Did you have a dental visit in the last 12 months?: Yes Did you have a dental problem in the last 6 months where you did not have access to dental care?: No Was dental information given to patient?: Patient has dentist HPI htn/elevated triglycerides/copd HPI Details The patiThe patient is a 64-year-old female presenting with diabetes mellitus management. Her hemoglobin A1c has decreased from 7.4% to 7.1%, with a target of less than 7%. She has been advised to reduce intake of foods high in sugar and carbohydrates. The patient also presents with hypertriglyceridemia, previously recorded at 450 mg/dL, now reduced to 176 mg/dL. Her other cholesterol levels are generally good, but her HDL cholesterol is low at 32 mg/dL, with a recommendation to increase it above 40 mg/dL. She has been advised to consider omega-3 supplements to improve her HDL levels. The patient reports mild wheezing, which improved upon re-evaluation. She uses an inhaler as needed and carries it with her regularly. COUNT INCLUDES THE [facility] Medical History Obesity COPD (chronic obstructive pulmonary disease) Hypertension Surgical History History of thyroidectomy History of cholecystectomy Family History Father Medical history unknown Mother Emphysema of lung Social History Housing: Apartment Alcohol intake: never Patient Tobacco Use Status: Current everyday Tobacco user Tobacco use type: Cigarette Cigarettes Per Day: 2 e-Cigarette/Vaping Use: Never Used Second Hand Smoke Exposure: Yes service: No Current occupational status: disabled Cognitive needs: Yes (Walker) Hearing needs: No Vision needs: Yes (Glasses) Questionnaire PHQ-9 Over the last 2 weeks, how often have you been bothered by any of the following problems? 1. Little interest or pleasure in doing things: not at all 2. Feeling down, depressed, or hopeless: not at all 3. Trouble falling or staying asleep, or sleeping too much: not at all 4. Feeling tired or having little energy: nearly every day 5. Poor appetite or overeating: nearly every day 6. Feeling bad about yourself - or that you are a failure or have let yourself or your family down: nearly every day 7. Trouble concentrating on things, such as reading the newspaper or watching television: nearly every day 8. Moving or speaking so slowly that other people could have noticed. Or the opposite - being so fidgety or restless that you have been moving around a lot more than usual: not at all 9. Thoughts that you would be better off or of hurting yourself in some way: not at all Total score: 12 Source: Developed by Drs. Riley Acosta, Sandie Quiroz, Jay Victor and colleagues, with an educational rudy from [employer]. Thrive Questionnaire Date Thrive assessed: 10/04/24 I am a: Patient What is your living situation today?: I have a steady place to live Within the past 12 months, did the food you bought not last and you didn't have the money to get more?: I choose not to answer this question Within the past 12 months, did you worry whether your food would run out before you got money to buy more?: Never true Do you have trouble paying for medicines?: No Do you have trouble getting transportation to medical appointments?: No Do you have trouble paying your heating and electricity bill?: No Do you have trouble taking care of your child, family member or friend?: I choose not to answer this question Do you have trouble with day-to-day activities such as bathing, preparing meals, shopping, managing finances, etc.?: I choose not to answer this question Are you currently unemployed and looking for a job?: I choose not to answer this question Are you interested in more education?: I choose not to answer this question Please select the resources that you would like help with: None Currently or been in a relationship where the following occur: I choose not to answer THRIVE Score: 0 AUDIT C Alcohol Use Questionnaire (AUDIT-C) 1. How often do you have a drink containing alcohol?: Never Total Score: 0 RANDA-7 AMB Questionnaire RANDA-7 Date RANDA - 7 assessed: 10/04/24 Feeling nervous, anxious, or on edge: 0 = Not at all Not being able to stop or control worryin = Not at all Worrying too much about different things: 0 = Not at all Trouble relaxin = Not at all Being so restless that it is hard to sit still: 0 = Not at all Becoming easily annoyed or irritable: 0 = Not at all Feeling afraid as if something awful might happen: 0 = Not at all Total RANDA-7 score (0-4 normal; 5-9 mild; 10-14 moderate; 15-21 severe): 0 Source: Developed by Drs. Riley Acosta, Sandie Quiroz, Jay Victor and colleagues, with an educational rudy from [employer]. Review of Systems Const Denies headache(s) Eyes Denies loss of vision ENT Denies vertigo, Denies dizziness, Denies headache(s) and Denies sore throat Card Denies chest pain, Denies leg edema and Denies lightheadedness Resp Denies cough, Denies hemoptysis and Reports wheezing (Intermittent) GI Denies abdominal pain, Denies melena, Denies constipation, Denies diarrhea and Denies vomiting Denies urinary frequency, Denies dysuria and Denies urinary urgency Musc Reports back pain (Lower back), Reports arthralgias (Bilateral knees), Denies joint swelling, Denies numbness and Denies tingling Neuro Denies Abnormal speech present, Denies behavioral changes, Denies vertigo, Denies dizziness, Denies headache(s), Denies loss of vision, Denies memory loss, Denies numbness and Denies tingling Psych Denies anxiety, Denies behavioral changes, Denies depression, Denies memory loss and Denies panic attacks Chris/Lymph Denies easy bleeding and Denies easy bruising Aller/Immun Reports wheezing (Intermittent) Physical exam (Primary Care) Vital Signs: Last Vital Signs Pulse 89 10/04/24 11:05 Resp 18 10/04/24 11:05 BP 110/60 10/04/24 11:05 Pulse Ox 97 10/04/24 11:05 Oxygen Delivery Method Room Air 10/04/24 11:05 BMI result Body Mass Index 31.7 Tobacco/Smoking Status: Tobacco use Status Tobacco use date assessed 10/04/24 10/04/24 11:12 Patient Tobacco Use Status Current everyday Tobacco 10/04/24 11:06 Tobacco use type Cigarette 10/04/24 11:06 e-Cigarette/Vaping Use Never Used 10/04/24 11:06 PHQ-9: PHQ-9 Score PHQ-9: Total score 12 10/04/24 11:31 Thrive Assessment: Date of Thrive Assessment Date Thrive assessed 10/04/24 10/04/24 11:12 Currently or been in a relationship where the following occur: I choose not to answer Const General: healthy appearing, no acute distress, alert and awake Nutritional Appearance: well nourished Orientation/consciousness: oriented to person, oriented to place and oriented to time HENIA Ears: TM's normal bilaterally General nose exam: Normal nasal mucous membranes and turbinates present Eyes Conjunctivae: conjunctivae normal Sclerae: sclerae normal Pupils: Equal, round and reactive pupils present Neck Neck: Yes no lymphadenopathy and Yes no JVD Thyroid: Thyroid normal Carotids: no bruits Resp Effort & Inspection: normal respiratory effort and not tachypneic Auscultation: no crackles, no rales, no rhonchi and no wheezes Cardio Rate: regular rate Rhythm: regular rhythm Heart sounds: no murmurs and normal S1 and S2 GI Palpation (GI): Soft to palpation, nontender, no hepatomegaly and no splenomegaly Auscultation: normal bowel sounds General: Yes no CVA tenderness Back/Spine/Pelvis Back: no CVA tenderness Thoracic/Lumbar Spine: No lumbar spinal tenderness Skin General skin exam: no rashes or lesions noted and dry skin Neuro General: oriented to person, oriented to place and oriented to time Cranial nerves: Yes Equal, round and reactive pupils present Speech: No Abnormal speech present Gait exam (Neuro): Assisted gait required Gait assisted method: walker Motor exam (neuro): no tremor noted Extrem Right upper extremity: full ROM Left upper extremity: full ROM Right lower extremity: full ROM and knee Details: no tenderness and no swelling; no edema Left lower extremity: full ROM and knee Details: no tenderness and no swelling; no edema Psych Mental Status: mental status grossly normal Speech and movement: Normal speech and movement present Affect: normal affect Attitude: cooperative Thought process: Normal thought process present Results Reviewed Results Reviewed: Laboratory Tests 09/03/24 09/03/24 10:40 10:42 WBC 11.3 H RBC 4.75 Hgb 13.5 Hct 41.2 MCV 86.7 MCH 28.4 MCHC 32.8 RDW 13.2 Plt Count 340 Sodium 138 Potassium 3.8 Chloride 104 Carbon Dioxide 25 Anion Gap 13 BUN 9 Creatinine 0.73 Estim Creat Clear Calc Not Reportable Estimated GFR > 60 Fasting Glucose 141 H Hemoglobin A1c % 7.1 H Calcium 10.0 Total Bilirubin 0.3 AST 23 ALT 27 Alkaline Phosphatase 85 Total Protein 7.4 Albumin 4.8 Triglycerides 176 H Cholesterol 155 LDL Cholesterol, Calc 88 HDL Cholesterol 32 L 25-OH Vitamin D Total 60.9 TSH 1.45 Urine Color Yellow Urine Appearance Clear Urine pH 6.0 Ur Specific Danielson <= 1.005 Urine Protein Negative Urine Glucose (UA) Negative Urine Ketones Negative Urine Blood Negative Urine Nitrite Negative Ur Leukocyte Esterase Negative Coding Level of Care Code Est Pt Level 4 (59211) Diagnoses Diabetes mellitus with coincident hypertension E11.9; I10 Elevated triglycerides with high cholesterol E78.2 Chronic bilateral low back pain without sciatica M54.50; G89.29 Chronicity: chronic Back pain laterality: bilateral Sciatica presence: without sciatica Obesity, unspecified class, unspecified obesity type, unspecified whether serious comorbidity present E66.9 Obesity type: unspecified obesity type Obesity classification: unspecified obesity classification Serious obesity comorbidity presence: unspecified whether serious comorbidity present Hypertension due to endocrine disorder I15.2 Hypertension type: secondary to endocrine disorders Chronic obstructive pulmonary disease, unspecified COPD type J44.9 COPD type: unspecified COPD Elevated alanine aminotransferase (ALT) level R74.01 Chronic pain of both knees M25.561; M25.562; G89.29 Chronicity: chronic Laterality: bilateral Time Spent (min) 38 Assessment & Plan Assessment & Plan (1) Diabetes mellitus with coincident hypertension: Code(s): E11.9 - Type 2 diabetes mellitus without complications; I10 - Essential (primary) hypertension Category: Medical Plan: Patient A1c been between 7.1 to 7.4% the last 3 times it was checked. It is 7.1% on his most recent labs Reinforced low sugar/carbohydrate diet and activity as tolerated Continue metformin 1000 mg b.i.d. (2) Elevated triglycerides with high cholesterol: Code(s): E78.2 - Mixed hyperlipidemia Category: Medical Plan: Triglycerides 176 decreased from 453 months ago, at that time, the patient was started on gemfibrozil 600 mg daily Reinforced low-cholesterol diet and activity as tolerated Continue current treatment We will recheck lipid panel in 3 months (3) Lower back pain: Code(s): M54.50 - Low back pain, unspecified Category: Medical Qualifiers: Chronicity: chronic Back pain laterality: bilateral Sciatica presence: without sciatica Qualified Code(s): M54.50 - Low back pain, unspecified; G89.29 - Other chronic pain Plan: Avoid bed rest (including sitting in bed) and to simply limit painful activities; improvement usually occurs within a few weeks May use cool packs; may alternate cold and hot packs Exercises a spencer (e.g., walking, swimming, cycling) as soon as possible, starting with 5-10 min and walk-in up to 20-30 minute q.day Abdominal core and back strengthening exercises may help to prevent future problems (4) Obesity: Code(s): E66.9 - Obesity, unspecified Category: Medical Qualifiers: Obesity type: unspecified obesity type Obesity classification: unspecified obesity classification Serious obesity comorbidity presence: unspec ified whether serious comorbidity present Qualified Code(s): E66.9 - Obesity, unspecified Plan: Patient is unable to participate in moderate to extensive physical exercise. Encouraged low calorie diet and activity as tolerated. (5) Hypertension: Code(s): I10 - Essential (primary) hypertension Category: Medical Qualifiers: Hypertension type: secondary to endocrine disorders Qualified Code(s): I15.2 - Hypertension secondary to endocrine disorders Plan: Blood pressure 110/60; within a goal Encouraged DASH diet and activity as tolerated. Refrain from alcohol use and if you smoke, smoking cessation is strongly advised Continue amlodipine 10 mg daily (6) COPD (chronic obstructive pulmonary disease): Code(s): J44.9 - Chronic obstructive pulmonary disease, unspecified Category: Medical Qualifiers: COPD type: unspecified COPD Qualified Code(s): J44.9 - Chronic obstructive pulmonary disease, unspecified Plan: Lifestyle modifications like smoking cessation. Wear a mask when around irritants, fumes, or particulate matter (e.g., painting, lawn mowing). Increase humidification at home, especially in the winter. Annual flu shots and the pneumonia shot can mitigate exacerbation. Increase fluids if not contraindicated because of heart failure. Continue albuterol sulfate 2.5 mg inhalation via neb tx q.6 to 8 hours p.r.n. or albuterol sulfate 90 mcg/actuation 2 puffs inhalation Q 4 H p.r.n. (7) Elevated alanine aminotransferase (ALT) level: Code(s): R74.01 - Elevation of levels of liver transaminase levels Category: Medical Plan: ALT normalized. Decrease or stop acetaminophen/alcohol usage. High cholesterol and weight gain can also elevate this enzyme. Encouraged weight loss measures (8) Knee pain: Code(s): M25.569 - Pain in unspecified knee Category: Medical Qualifiers: Chronicity: chronic Laterality: bilateral Qualified Code(s): M25.561 - Pain in right knee; M25.562 - Pain in left knee; G89.29 - Other chronic pain Plan: Bilateral knee pain. Worse in left knee. Left knee x-ray done in 2021 showed degenerative disease. The patient wants to continue conservative treatments at this time. Reports that her walker helps significantly. Plan Patient to return in 3 months for re-evaluation/complete scheduled labs prior to appointment Orders: Orders Hemoglobin A1c 3 Months I15.2 - Hypertension secondary to endocrine disorders, E78.2 - Mixed hyperlipidemia, E11.9 - Type 2 diabetes mellitus without complications, I10 - Essential (primary) hypertension, R74.01 - Elevation of levels of liver transaminase levels, J44.9 - Chronic obstructive pulmonary dise ase, unspecified Comprehensive [place]. Panel Fast 3 Months I15.2 - Hypertension secondary to endocrine disorders, E78.2 - Mixed hyperlipidemia, E11.9 - Type 2 diabetes mellitus without complications, I10 - Essential (primary) hypertension, R74.01 - Elevation of levels of liver transaminase levels, J44.9 - Chronic obstructive pulmonary disease, unspecified UA CC w/rflx Micro + Cult 3 Months I15.2 - Hypertension secondary to endocrine disorders, E78.2 - Mixed hyperlipidemia, E11.9 - Type 2 diabetes mellitus without complications, I10 - Essential (primary) hypertension, R74.01 - Elevation of levels of liver transaminase levels, J44.9 - Chronic obstructive pulmonary disease, unspecified Vitamin D 25-OH Total 3 Months I15.2 - Hypertension secondary to endocrine disorders, E78.2 - Mixed hyperlipidemia, E11.9 - Type 2 diabetes mellitus without complications, I10 - Essential (primary) hypertension, R74.01 - Elevatio n of levels of liver transaminase levels, J44.9 - Chronic obstructive pulmonary disease, unspecified Complete Blood Count Auto Diff 3 Months I15.2 - Hypertension secondary to endocrine disorders, E78.2 - Mixed hyperlipidemia, E11.9 - Type 2 diabetes mellitus without complications, I10 - Essential (primary) hypertension, R74.01 - Elevation of levels of liver transaminase levels, J44.9 - Chronic obstructive pulmonary disease, unspecified Lipid Panel 3 Months I15.2 - Hypertension secondary to endocrine disorders, E78.2 - Mixed hyperlipidemia, E11.9 - Type 2 diabetes mellitus without complications, I10 - Essential (primary) hypertension, R74.01 - Elevation of levels of liver transaminase levels, J44.9 - Chronic obstructive pulmonary disease, unspecified TSH reflex Free T4 3 Months I15.2 - Hypertension secondary to endocrine disorders, E78.2 - Mixed hyperlipidemia, E11.9 - Type 2 diabetes mellitus without complications, I10 - Essential (primary) hypertension, R74.01 - Elevation of levels of liver transaminase levels, J44.9 - Chronic obstructive pulmonary disease, unspecified
--- OUTSIDE RECORDS SUMMARY | 2024-10-04 12:10 | XMS_ITS | Clinical Summary ---
[facility] [address] [place] [address] Care Team Providers Care Product Builder Name Role Phone Unavailable Primary Care Provider [...] Vaccine (1 - 2023-2 5 season) 2023 Depression Screening 02/22/2024 Influenza Vaccine (#1) 2024 RSV Immunization Adult [...]
== END 2024-10-04 11:34 | disposition home or self-care (01) ==
LOC: HO.HMCH 11:00
DX: E11.9 Type 2 diabetes mellitus without complications (principal); J44.9 Chronic obstructive pulmonary disease, unspecified; E66.9 Obesity, unspecified; Z68.31 Body mass index [BMI] 31.0-31.9, adult; I10 Essential (primary) hypertension; E78.2 Mixed hyperlipidemia; M54.50 Low back pain, unspecified; G89.29 Other chronic pain; I15.2 Hypertension secondary to endocrine disorders; R74.01 Elevation of levels of liver transaminase levels; M25.561 Pain in right knee; M25.562 Pain in left knee

== ENCOUNTER → 2024-10-04 10:59 | Outpatient (BNVA) | payer OTHER, SELFPAY | DX: I10 Essential (primary) hypertension (principal); E11.9 Type 2 diabetes mellitus without complications; E78.2 Mixed hyperlipidemia; E78.1 Pure hyperglyceridemia; M54.50 Low back pain, unspecified; G89.29 Other chronic pain; I15.2 Hypertension secondary to endocrine disorders; J44.9 Chronic obstructive pulmonary disease, unspecified; R74.01 Elevation of levels of liver transaminase levels; M25.561 Pain in right knee; M25.562 Pain in left knee; E66.9 Obesity, unspecified; Z68.31 Body mass index [BMI] 31.0-31.9, adult | CPT/HCPCS: 99212 ==

== ENCOUNTER 2024-12-27 09:49 | Outpatient (REF) | payer OTHER, SELFPAY ==
[2024-12-27 09:59] LABS: MANUAL DIFF FLAG NO
[2024-12-27 10:42] LABS: Hematocrit 41.8 % (37.0-47.0); Hemoglobin 13.3 g/dl (12.0-16.0); Imm Gran Abs Auto 0.04 X10*3/uL (0.00-0.03); Imm Gran Pct Auto 0.3 % (0.0-0.4); Lymphocytes Absolute Auto 3.7 X10*3/uL (1.2-4.9); Mean Corpuscular HGB Conc 31.8 g/dl (31.0-35.0); Mean Corpuscular Hemoglobin 28.2 pg (27.0-33.0); Mean Corpuscular Volume 88.7 fL (80.0-98.0); NRBC Abs Auto 0.000 X10*3/uL (0.0-0.012); NRBC Pct Auto 0.0 /100WBC (0.0-0.2); Platelet Count 352 X10*3/uL (160-400); Red Blood Count 4.71 X10*6/uL (4.20-5.50); White Blood Count 12.7 X10*3/uL (4.8-10.8)
--- OUTSIDE RECORDS SUMMARY | 2024-12-27 11:07 | XMS_ITS | Clinical Summary ---
[facility] [address] [place] [address] Care Team Providers Care Arc Trimmer Name Role Phone Unavailable Primary Care Provider [...] 2010 Zoster Vaccines (1 of 2) 2010 Depression Screening 02/22/2024 COVID-19 Vaccine (1 - 2023-2 5 season) 2024 Influenza Vaccine (#1) 2024 RSV Immunization Adult [...]
[2024-12-27 11:15] LABS: Alanine Aminotransferase 21 U/L (0-31); Albumin Level 4.7 g/dL (3.5-5.0); Alkaline Phosphatase 87 U/L (39-117); Anion Gap 13 (12-20); Aspartate Amino Transferase 23 U/L (5-31); Blood Urea Nitrogen 12 mg/dL (9-16); Calcium 9.5 mg/dL (8.4-10.2); Carbon Dioxide 25 mmol/L (22-29); Chloride 103 mmol/L (96-108); Cholesterol 195 mg/dL (<200); Estimated Glomerular Filt Rate > 60; HDL Cholesterol 36 mg/dL (>40); Potassium 4.4 mmol/L (3.3-5.1); Sodium 137 mmol/L (135-145); Total Protein 7.2 g/dL (6.5-8.0); Triglycerides 148 mg/dL (<150)
[2024-12-27 11:28] LABS: Appearance Urine Clear; Glucose Urine UA Negative (Negative); PH 6.0 (5.0-9.0); Specific Gravity - Urine 1.010 (1.005-1.025); UMIC TRIGGER UACC YES
[2024-12-27 11:33] LABS: UACC Culture Trigger YES
== END 2024-12-27 09:50 | disposition home or self-care (01) ==
LOC: HO.LAB 09:49
DX: I10 Essential (primary) hypertension (principal); E11.9 Type 2 diabetes mellitus without complications; I15.2 Hypertension secondary to endocrine disorders; E78.2 Mixed hyperlipidemia; J44.9 Chronic obstructive pulmonary disease, unspecified; R74.01 Elevation of levels of liver transaminase levels
CPT/HCPCS: 36415; 80053; 80061; 81001; 81003; 82306; 83036; 84443; 85025; 87086; 87088; 87186

== ENCOUNTER 2025-01-04 10:04 | Outpatient (AMB) | payer OTHER, SELFPAY ==
[2025-01-04 10:12] VITALS: BP 102/58; PULSE 94; RESP 18; TEMP 36.2; O2SAT 95; BMI 31.5
--- NOTE | 2025-01-04 10:12 | A.OFFPC_ITS ---
Vital Signs 01/04/25 10:12 Height 5 ft 3 in Weight 178 lb BMI 31.5 BP 102/58 L Blood Pressure Location Lt brachial Position Sitting Respiration 18 Pulse 94 Pulse Source Pulse Oximeter Temp 97.1 F Temp Source Temporal Artery Scan Pulse Oximetry (%) 95 Oxygen Delivery Method Room Air Intake Visit Reasons: dm/copd/hld/htn African History Professor Required: No Accompanied by: Self / Same As Patient Allergies amoxicillin Allergy (Unknown, Verified 01/04/25 10:13) Unknown barium sulfate Allergy (Unknown, Verified 01/04/25 10:13) unknown cortisone (Cortisone) Allergy (Unknown, Verified 01/04/25 10:13) TREMORS ibuprofen (From Motrin) Allergy (Unknown, Verified 01/04/25 10:13) Unknown Penicillins (PENICILLINS) Allergy (Unknown, Verified 01/04/25 10:13) HIVES varenicline (From Chantix) Allergy (Unknown, Verified 01/04/25 10:13) Unknown Medication List - Last Reconciled 01/14/25 by HA Bermudez albuterol sulfate 2.5 mg (3 mL) inhalation Q6-8H albuterol sulfate 90 mcg/actuation 2 puffs inhalation Q4H PRN amlodipine 10 mg PO DAILY blood sugar diagnostic (FreeStyle Lite Strips) test blood sugar three times a day blood-glucose meter (FreeStyle Flash System kit) As directed blood-glucose meter (FreeStyle Lite Meter kit) As directed regjqfyqot-hhhlxjj-upzrhjwp 50-325-40 mg 1 cap PO Q6H PRN ciprofloxacin HCl 500 mg PO BID 5 days gemfibrozil 600 mg PO DAILY hydrochlorothiazide 12.5 mg PO DAILY lorazepam 1 mg PO BID PRN metformin 1,000 mg PO BID walker (Ultra-Light Rollator misc) to use daily [Walker(Ultra-Light Rollator misc) As directed] Tobacco use date assessed: 01/04/25 Fall risk assessment: No Falls in past year Last assessed Fall Risk: 01/04/25 Dental Screening Dental Screen Date: 01/04/25 Did you have a dental visit in the last 12 months?: No Did you have a dental problem in the last 6 months where you did not have access to dental care?: No Was dental information given to patient?: No HPI dm/copd/hld/htn HPI Details The is 64 year old female presenting for DM, HLD, COPD, HTN, obesity follow up Reports feeling okay today, not much changed and she is not feeling better or worse Recent labs to be reviewed The HgA1C 7.1%, same as previous-goal less than 7% Triglycerides has been trending down and is currently in the normal range 148 The patient LDL increased from 88-130 mg/dL Blood pressure continue to be within normal limits Her migraines has been controlled with intermittent breakthroughs Patient reports that she is only smoking 2 cigarettes a day now but her breathing is still the same Uses a rolling walker both for stability and pain control PFSH Medical History Obesity COPD (chronic obstructive pulmonary disease) Hypertension Surgical History History of thyroidectomy History of cholecystectomy Family History Father Medical history unknown Mother Emphysema of lung Social History Housing: Apartment Alcohol intake: never Patient Tobacco Use Status: Current everyday Tobacco user Tobacco use type: Cigarette Cigarettes Per Day: 2 e-Cigarette/Vaping Use: Never Used Second Hand Smoke Exposure: Yes service: No Current occupational status: disabled Cognitive needs: Yes (Walker) Hearing needs: No Vision needs: Yes (Glasses) Questionnaire Thrive Questionnaire Date Thrive assessed: 10/04/24 I am a: Patient What is your living situation today?: I have a steady place to live Within the past 12 months, did the food you bought not last and you didn't have the money to get more?: I choose not to answer this question Within the past 12 months, did you worry whether your food would run out before you got money to buy more?: Never true Do you have trouble paying for medicines?: No Do you have trouble getting transportation to medical appointments?: No Do you have trouble paying your heating and electricity bill?: No Do you have trouble taking care of your child, family member or friend?: I choose not to answer this question Do you have trouble with day-to-day activities such as bathing, preparing meals, shopping, managing finances, etc.?: I choose not to answer this question Are you currently unemployed and looking for a job?: I choose not to answer this question Are you interested in more education?: I choose not to answer this question Please select the resources that you would like help with: None Currently or been in a relationship where the following occur: I choose not to answer THRIVE Score: 0 RANDA-7 AMB Questionnaire RANDA-7 Date RANDA - 7 assessed: 10/04/24 Source: Developed by Drs. Riley Acosta, Sandie Quiroz, Jay Victor and colleagues, with an educational rudy from [employer]. Review of Systems Const Reports headache(s) (controlled) Eyes Denies loss of vision ENT Denies vertigo, Denies dizziness, Reports headache(s) (controlled) and Denies sore throat Card Denies chest pain, Denies leg edema, Denies lightheadedness and Reports dyspnea on exertion (with over exertion) Resp Denies cough, Denies hemoptysis, Reports dyspnea on exertion (with over exertion) and Reports wheezing (Intermittent) GI Denies abdominal pain, Denies melena, Denies constipation, Denies diarrhea and D enies vomiting Denies urinary frequency, Denies dysuria and Denies urinary urgency Musc Reports back pain (Lower back), Reports arthralgias (Bilateral knees), Denies joint swelling, Denies numbness and Denies tingling Neuro Denies Abnormal speech present, Denies behavioral changes, Denies vertigo, Denies dizziness, Reports headache(s) (controlled), Denies loss of vision, Denies memory loss, Denies numbness and Denies tingling Psych Denies anxiety, Denies behavioral changes, Denies depression, Denies memory loss and Denies panic attacks Chris/Lymph Denies easy bleeding and Denies easy bruising Aller/Immun Reports wheezing (Intermittent) Physical exam (Primary Care) Vital Signs: Last Vital Signs Temp 97.1 F 01/04/25 10:12 Pulse 94 01/04/25 10:12 Resp 18 01/04/25 10:12 BP 102/58 L 01/04/25 10:12 Pulse Ox 95 01/04/25 10:12 Oxygen Delivery Method Room Air 01/04/25 10:12 BMI result Body Mass Index 31.5 Tobacco/Smoking Status: Tobacco use Status Tobacco use date assessed 01/04/25 01/04/25 10:16 Patient Tobacco Use Status Current everyday Tobacco 01/04/25 10:16 Tobacco use type Cigarette 01/04/25 10:16 e-Cigarette/Vaping Use Never Used 01/04/25 10:16 Thrive Assessment: Date of Thrive Assessment Date Thrive assessed 10/04/24 01/04/25 10:16 Currently or been in a relationship where the following occur: I choose not to answer Const General: healthy appearing, no acute distress, alert and awake Nutritional Appearance: well nourished Orientation/consciousness: oriented to person, oriented to place and oriented to time HENMT Ears: TM's normal bilaterally General nose exam: Normal nasal mucous membranes and turbinates present Eyes Conjunctivae: conjunctivae normal Sclerae: sclerae normal Pupils: Equal, round and reactive pupils present Neck Neck: Yes no lymphadenopathy and Yes no JVD Thyroid: Thyroid normal Carotids: no bruits Resp Effort & Inspection: normal respiratory effort and not tachypneic Auscultation: no crackles, no rales, no rhonchi and no wheezes Cardio Rate: regular rate Rhythm: regular rhythm Heart sounds: no murmurs and normal S1 and S2 GI Palpation (GI): Soft to palpation, nontender, no hepatomegaly and no splenomegaly Auscultation: normal bowel sounds General: Yes no CVA tenderness Back/Spine/Pelvis Back: no CVA tenderness Thoracic/Lumbar Spine: No lumbar spinal tenderness Skin General skin exam: no rashes or lesions noted and dry skin Neuro General: oriented to person, oriented to place and oriented to time Cranial nerves: Yes Equal, round and reactive pupils present Speech: No Abnormal speech present Gait exam (Neuro): Assisted gait required Gait assisted method: walker Motor exam (neuro): no tremor noted Extrem Right upper extremity: full ROM Left upper extremity: full ROM Right lower extremity: full ROM and knee Details: no tenderness and no swelling; no edema Left lower extremity: full ROM and knee Details: no tenderness and no swelling; no edema Psych Mental Status: mental status grossly normal Speech and movement: Normal speech and movement present Affect: normal affect Attitude: cooperative Thought process: Normal thought process present Results Reviewed Results Reviewed: Laboratory Tests 12/27/24 12/27/24 09:45 09:58 WBC 12.7 H RBC 4.71 Hgb 13.3 Hct 41.8 MCV 88.7 MCH 28.2 MCHC 31.8 RDW 13.0 Plt Count 352 Sodium 137 Potassium 4.4 Chloride 103 Carbon Dioxide 25 Anion Gap 13 BUN 12 Creatinine 0.72 Estimated GFR > 60 Fasting Glucose 160 H Hemoglobin A1c % 7.1 H Calcium 9.5 Total Bilirubin 0.2 AST 23 ALT 21 Alkaline Phosphatase 87 Total Protein 7.2 Albumin 4.7 Triglycerides 148 Cholesterol 195 LDL Cholesterol, Calc 130 H HDL Cholesterol 36 L 25-OH Vitamin D Total 43.1 TSH 1.22 Urine Color Yellow Urine Appearance Clear Urine pH 6.0 Ur Specific [place] 1.010 Urine Protein Trace Urine Glucose (UA) Negative Urine Ketones Negative Urine Blood Trace H Urine Nitrite Positive H Ur Leukocyte Esterase Small (1+) H Urine RBC 0-2 Urine WBC 11-20 H Ur Squamous Epith Cells 3-5 Urine Bacteria 4+ Hyaline Casts 0-2 Coding Level of Care Code Est Pt Level 4 (51717) Diagnoses Diabetes mellitus with coincident hypertension E11.9; I10 Elevated triglycerides with high cholesterol E78.2 Chronic bilateral low back pain without sciatica M54.50; G89.29 Chronicity: chronic Back pain laterality: bilateral Sciatica presence: without sciatica Obesity, unspecified class, unspecified obesity type, unspecified whether serious comorbidity present E66.9 Obesity type: unspecified obesity type Obesity classification: unspecified obesity classification Serious obesity comorbidity presence: unspecified whether serious comorbidity present Hypertension due to endocrine disorder I15.2 Hypertension type: secondary to endocrine disorders Chronic obstructive pulmonary disease, unspecified COPD type J44.9 COPD type: unspecified COPD Elevated alanine aminotransferase (ALT) level R74.01 Chronic pain of both knees M25.561; M25.562; G89.29 Chronicity: chronic Laterality: bilateral Time Spent (min) 37 Assessment & Plan Assessment & Plan (1) Diabetes mellitus with coincident hypertension: Code(s): E11.9 - Type 2 diabetes mellitus without complications; I10 - Essential (primary) hypertension Category: Medical Plan: HgA1c is 7.1%, same on previous lab-goal less than 7% Reinforced low sugar/carbohydrate diet and activity as tolerated Continue metformin 1000 mg b.i.d. (2) Elevated triglycerides with high cholesterol: Code(s): E78.2 - Mixed hyperlipidemia Category: Medical Plan: Triglycerides 148 decreased from 176; it gradually decreasing, it was 453 couple months ago, at that time, the patient was started on gemfibrozil 600 mg daily Reinforced low-cholesterol diet and activity as tolerated Continue current treatment We will recheck lipid panel in 3 months (3) Lower back pain: Code(s): M54.50 - Low back pain, unspecified Category: Medical Qualifiers: Chronicity: chronic Back pain laterality: bilateral Sciatica presence: without sciatica Qualified Code(s): M54.50 - Low back pain, unspecified; G89.29 - Other chronic pain Plan: Avoid bed rest (including sitting in bed) and to simply limit painful activities; improvement usually occurs within a few weeks May use cool packs; may alternate cold and hot packs Exercises a spencer (e.g., walking, swimming, cycling) as soon as possible, starting with 5-10 min and walk-in up to 20-30 minute q.day Abdominal core and back strengthening exercises may help to prevent future problems (4) Obesity: Code(s): E66.9 - Obesity, unspecified Category: Medical Qualifiers: Obesity type: unspecified obesity type Obesity classification: unspecified obesity classification Serious obesity comorbidity presence: unspecified whether serious comorbidity present Qualified Code(s): E66.9 - Obesity, unspecified Plan: Patient is unable to participate in moderate to extensive physical exercise. Encouraged low calorie diet and activity as tolerated. (5) Hypertension: Code(s): I10 - Essential (primary) hypertension Category: Medical Qualifiers: Hypertension type: secondary to endocrine disorders Qualified Code(s): I15.2 - Hypertension secondary to endocrine disorders Plan: Blood pressure 102/58; within a goal Encouraged DASH diet and activity as tolerated. Refrain from alcohol use and if you smoke, smoking cessation is strongly advised Continue amlodipine 10 mg daily (6) COPD (chronic obstructive pulmonary disease): Code(s): J44.9 - Chronic obstructive pulmonary disease, unspecified Category: Medical Qualifiers: COPD type: unspecified COPD Qualified Code(s): J44.9 - Chronic obstructive pulmonary disease, unspecified Plan: Lifestyle modifications like smoking cessation. Wear a mask when around irritants, fumes, or particulate matter (e.g., painting, lawn mowing). Increase humidification at home, especially in the winter. Annual flu shots and the pneumonia shot can mitigate exacerbation. Increase fluids if not contraindicated because of heart failure. Continue albuterol sulfate 2.5 mg inhalation via neb tx q.6 to 8 hours p.r.n. or albuterol sulfate 90 mcg/actuation 2 puffs inhalation Q 4 H p.r.n. (7) Elevated alanine aminotransferase (ALT) level: Code(s): R74.01 - Elevation of levels of liver transaminase levels Category: Medical Plan: ALT normalized. Decrease or stop acetaminophen/alcohol usage. High cholesterol and weight gain can also elevate this enzyme. Encouraged weight loss measures (8) Knee pain: Code(s): M25.569 - Pain in unspecified knee Category: Medical Qualifiers: Chronicity: chronic Laterality: bilateral Qualified Code(s): M25.561 - Pain in right knee; M25.562 - Pain in left knee; G89.29 - Other chronic pain Plan: Bilateral knee pain. Worse in left knee. Left knee x-ray done in 2021 showed degenerative disease. The patient wants to continue conservative treatments at this time. Reports that her walker helps significantly. Plan Patient to return in 3 months for re-evaluation/complete scheduled labs prior to appointment Orders: Orders Hemoglobin A1c 3 Months I15.2 - Hypertension secondary to endocrine disorders, E78.2 - Mixed hyperlipidemia, E11.9 - Type 2 diabetes mellitus without complications, I10 - Essential (primary) hypertension, E66.9 - Obesity, unspecified, R74.01 - Elevation of levels of liver transaminase levels, J44.9 - Chronic obstructive pulmonary disease, unspecified UA CC w/rflx Micro + Cult 3 Months I15.2 - Hypertension secondary to endocrine disorders, E78.2 - Mixed hyperlipidemia, E11.9 - Type 2 diabetes mellitus without complications, I10 - Essential (primary) hypertension, E66.9 - Obesity, unspecified, R74.01 - Elevation of levels of liver transaminase levels, J44.9 - Chronic obstructive pulmonary disease, unspecified Vitamin D 25-OH Total 3 Months I15.2 - Hypertension secondary to endocrine disorders, E78.2 - Mixed hyperlipidemia, E11.9 - Type 2 diabetes mellitus without complications, I10 - Essential (primary) hypertension, E66.9 - Obesity, unspecified, R74.01 - Elevation of levels of liver transaminase levels, J44.9 - Chronic obstructive pulmonary disease, unspecified Complete Blood Count Auto Diff 3 Months I15.2 - Hypertension secondary to endocrine disorders, E78.2 - Mixed hyperlipidemia, E11.9 - Type 2 diabetes mellitus without complications, I10 - Essential (primary) hypertension, E66.9 - Obesity, unspecified, R74.01 - Elevation of levels of liver transaminase levels, J44.9 - Chronic obstructive pulmonary disease, unspecified Comprehensive [place]. Panel Fast 3 Months I15.2 - Hypertension secondary to end ocrine disorders, E78.2 - Mixed hyperlipidemia, E11.9 - Type 2 diabetes mellitus without complications, I10 - Essential (primary) hypertension, E66.9 - Obesity, unspecified, R74.01 - Elevation of levels of liver transaminase levels, J44.9 - Chronic obstructive pulmonary disease, unspecified Lipid Panel 3 Months I15.2 - Hypertension secondary to endocrine disorders, E78.2 - Mixed hyperlipidemia, E11.9 - Type 2 diabetes mellitus without complications, I10 - Essential (primary) hypertension, E66.9 - Obesity, unspecified, R74.01 - Elevation of levels of liver transaminase levels, J44.9 - Chronic obstructive pulmonary disease, unspecified TSH reflex Free T4 3 Months I15.2 - Hypertension secondary to endocrine disorders, E78.2 - Mixed hyperlipidemia, E11.9 - Type 2 diabetes mellitus without complications, I10 - Essential (primary) hypertension, E66.9 - Obesity, unspecified, R74.01 - Elevation of levels of liver transaminase levels, J44.9 - Chronic obstructive pulmonary disease, unspecified
--- OUTSIDE RECORDS SUMMARY | 2025-01-04 12:08 | XMS_ITS | Clinical Summary ---
[facility] Address [address] [place] [address] Care Team Providers Care Billing And Quality Technician Name Role Phone Unavailable Primary Care Provider [...] Depression Screening 02/22/2024 COVID-19 Vaccine (1 - 2024-2 6 season) 2024 Influenza Vaccine (#1) 2024 RSV [...]
== END 2025-01-04 10:43 | disposition home or self-care (01) ==
LOC: HO.HMCH 10:05
DX: E11.9 Type 2 diabetes mellitus without complications (principal); E66.9 Obesity, unspecified; J44.9 Chronic obstructive pulmonary disease, unspecified; Z68.31 Body mass index [BMI] 31.0-31.9, adult; I10 Essential (primary) hypertension; E78.2 Mixed hyperlipidemia; M54.50 Low back pain, unspecified; G89.29 Other chronic pain; I15.2 Hypertension secondary to endocrine disorders; R74.01 Elevation of levels of liver transaminase levels; M25.561 Pain in right knee; M25.562 Pain in left knee

== ENCOUNTER → 2025-01-04 10:04 | Outpatient (BNVA) | payer OTHER, SELFPAY | DX: I15.2 Hypertension secondary to endocrine disorders (principal); E66.9 Obesity, unspecified; E11.9 Type 2 diabetes mellitus without complications; F17.210 Nicotine dependence, cigarettes, uncomplicated; E78.2 Mixed hyperlipidemia; M54.50 Low back pain, unspecified; G89.29 Other chronic pain; J44.9 Chronic obstructive pulmonary disease, unspecified; R74.01 Elevation of levels of liver transaminase levels; M25.561 Pain in right knee; M25.562 Pain in left knee | CPT/HCPCS: 99212 ==